=== PATIENT | female | born 1960 ===

== ENCOUNTER 2016-06-17 11:20 | Observation (INO) | payer OTHER ==
[2016-06-17 11:26] VITALS: BMI 27.6
--- NOTE | 2016-06-17 12:55 | ED PDOC ---
HPI:STROKE - Time Time: 12:15 - Historian Historian: Patient - Chief Complaint Chief Complaint: Numbness - Onset Date: 06/16/16 Time: 22:00 Onset: Hours - Timing Timing: Currently Symptomatic - Location Locate right:: Face, Upper extremity, Lower extremity - Severity of pain Maximum severity:: Mild Severity Current: Mild - Associated Symptoms Associated symptoms:: Chest pain - TPA Positive for Contraindication: Yes Reason tPA is not being Administered: out of window for TPA - Notes: Notes:: Patient is a 56 year old female who presents to ED for evaluation of chest pain with right sided numbness and pain that began at 11pm yesterday. Patient also reports dizziness. Numbness includes right face, right arm and right leg, denies fever or chills. PCP at [facility] NIHSS Stroke Scale - Date/Time Evaluation Performed Date Performed: 06/17/16 Time Performed: 12:30 When Was NIHSS Performed: Baseline - How Severe is the Stroke Level of Consciousness: 0=Alert LOC to Questions: 0=Both comments correct LOC to commands: 0=Obeys both correctly Best Gaze: 0=Normal Visual: 0=No visual loss Facial: 0=Normal Motor Arm - Left: 0=No drift Motor Arm - Right: 0=No drift Motor Leg - Left: 0=No drift Motor Leg - Right: 0=No drift Limb Ataxia: 0=Absent Sensory: 1=Mild to moderate loss Best Language: 0=No aphasia Dysarthia: 0=Normal articulation Extinction & Inattention (Neglect): 0=Normal, no object Score: 1 rTPA Inclusion/Exclusion - Refusal of Treatment Patient Refused Treatment: No - Inclusion Criteria for Altepase Patient is 18 years or Older: Yes The Clinical Diagnosis of Ischemic Stroke That is Causing a Potentially Disabling Neurological Deficit: Yes Time of Onset is Well Established to be Less Than 270 Minute Before Treatment Would Begin: No Risk/Benefit Discussed With Patient/Family Member Present: Yes Past Medical History Reviewed: Historical Data, Nursing Documentation, Vital Signs Vital Signs: Last Vital Signs Temp 98.2 F 06/17/16 11:26 Pulse 78 06/17/16 11:26 Resp 19 06/17/16 11:26 BP 142/69 06/17/16 11:26 Pulse Ox 98 06/17/16 11:26 - Medical History PMH: Diabetes (type II) Denies: Chronic Kidney Disease - Surgical History Surgical History: No Surg Hx - Family History Family History: States: No Known Family Hx - Living Arrangements Living Arrangements: With Family - Home Medications Home Medications: Ambulatory Orders Medication Instructions Recorded Glimepiride [Amaryl] 4 mg PO BID 06/17/16 metFORMIN [glucOPHAGE] 1,000 mg PO BID 06/17/16 - Allergies Allergies/Adverse Reactions: Allergies Allergy/AdvReac Type Severity Reaction Status Date / Time No Known Allergies Allergy Verified 04/19/15 15:28 Review of Systems ROS Statement: Except As Marked, All Systems Reviewed And Found Negative Constitutional: Negative for: Fever, Chills Eyes: Negative for: Vision Change Cardiovascular: Positive for: Chest Pain. Negative for: Palpitations, Light Headedness Respiratory: Negative for: Shortness of Breath Gastrointestinal: Negative for: Nausea, Vomiting, Abdominal Pain, Diarrhea Musculoskeletal: Positive for: Neck Pain (right), Arm Pain (right), Leg Pain ( right) Neurological: Positive for: Numbness, Dizziness. Negative for: Weakness, Change in Speech, Headache Physical Exam - Reviewed Nursing Documentation Reviewed: Yes Vital Signs Reviewed: Yes - Physical Exam Appears: Positive for: Non-toxic, No Acute Distress Head Exam: Positive for: ATRAUMATIC, NORMAL INSPECTION Skin: Positive for: Normal Color, Warm Eye Exam: Positive for: Normal appearance, EOMI, PERRL Neck: Positive for: Normal, Painless ROM Cardiovascular/Chest: Positive for: Regular Rate, Rhythm, Chest Non Tender. Negative for: Murmur Respiratory: Negative for: Wheezing Gastrointestinal/Abdominal: Positive for: Normal Exam. Negative for: Tenderness , Distended Back: Positive for: Normal Inspection Extremity: Positive for: Normal ROM. Negative for: Pedal Edema, Calf Tenderness Neurologic/Psych: Positive for: Alert, Oriented - Laboratory Results Result Diagrams: 06/17/16 13:25 06/17/16 13:25 - ECG O2 Sat by Pulse Oximetry: 98 (RA) Pulse Ox Interpretation: Normal Medical Decision Making Medical Decision Making: Time: 1230 Initial impression: CVA onset out of window. Chest pain r/o ACS Initial plan: -- Type and screen -- CT-head -- CMP -- Hemoglobin -- Lipid panel -- Troponin -- CBC -- PT/PTT -- CXR -- cut out worker Time: 1445 CT-head results reviewed PROCEDURE: CT HEAD WITHOUT CONTRAST. HISTORY: Right-sided numbness COMPARISON: None available. TECHNIQUE: Axial computed tomography images were obtained through the head/brain without intravenous contrast. Radiation dose: Total exam DLP = 805.38 mGy-cm. This CT exam was performed using one or more of the following dose reduction techniques: Automated exposure control, adjustment of the mA and/or kV according to patient size, and/or use of iterative reconstruction technique. FINDINGS: HEMORRHAGE: No intracranial hemorrhage. BRAIN: Esparza-white matter differentiation is preserved. There is no mass, mass effect or abnormal extra-axial fluid collection. VENTRICLES: The ventricles are normal in size, shape and configuration. CALVARIUM: The skull base and calvarium are normal PARANASAL SINUSES: Predominantly clear. MASTOID AIR CELLS: Bilateral mastoid air cells are underdeveloped. OTHER FINDINGS: None. IMPRESSION: No acute intracranial abnormality. Discussed with Dr Wilson who agrees that patient is not TPA candidate since is out of window for TPA and NIH SS is 1. Recommends admission for stroke work up. Scribe Attestation: Documented by Mleina Burden acting as a scribe for Niranjan Sebastian MD MD Scribe Attestation: All medical record entries made by the Scribe were at my direction and personally dictated by me. I have reviewed the chart and agree that the record accurately reflects my personal performance of the history, physical exam, medical decision making, and the department course for this patient. I have also personally directed, reviewed, and agree with the discharge instructions and disposition. Disposition - Clinical Impression Clinical Impression: Numbness on right side, CVA (cerebral vascular accident), Chest pain - Patient ED Disposition Is Patient to be Admitted: Yes Discussed With : Diomedes Hillman Doctor Will See Patient In The: ED Counseled Patient/Family Regarding: Studies Performed, Diagnosis - Disposition Disposition Time: 15:00 Condition: FAIR - Pt Status Changed To: Hospital Disposition Of: Inpatient - Admit Certification Admit to Inpatient:: After my assessment, the patient will require hospitalization for at least two midnights. This is because of the severity of symptoms shown, intensity of services needed, and/or the medical risk in this patient being treated as an outpatient. - POA Present On Arrival: Poor Glycemic Control Core Measure Indicators: Chest Pain
--- NOTE | 2016-06-17 13:09 | RAD ---
HISTORY: Chest pain COMPARISON: 01/14/2015 FINDINGS: LUNGS: The lungs are well inflated and clear. PLEURA: No significant pleural effusion identified, no pneumothorax apparent. CARDIOVASCULAR: Normal. OSSEOUS STRUCTURES: No significant abnormalities. VISUALIZED UPPER ABDOMEN: Normal. OTHER FINDINGS: None. IMPRESSION: No active pulmonary disease.
[2016-06-17 13:38] LABS: BASO % 0.6 % (0.0-2.0); EOS # 0.1 K/uL (0.0-0.7); HEMATOCRIT 43.6 % (34.0-47.0); LYMPH # 2.8 K/uL (1.0-4.3); LYMPH % 45.9 % (20.0-40.0); MEAN CELL VOLUME 89.8 fl (81.0-99.0); MEAN CORPUSCULAR HEMOGLOBIN 30.7 pg (27.0-31.0); MEAN CORPUSCULAR HGB CONC 34.1 g/dL (33.0-37.0); MEAN PLATELET VOLUME 11.1 fl (7.2-11.7); MONO # 0.4 K/uL (0.0-0.8); MONO % 6.3 % (0.0-10.0); NEUT # 2.7 K/uL (1.8-7.0); NEUT % 45.2 % (50.0-75.0); NRBC % 0.1 % (0.0-0.0)
--- NOTE | 2016-06-17 13:51 | CT ---
PROCEDURE: CT HEAD WITHOUT CONTRAST. HISTORY: Right-sided numbness COMPARISON: None available. TECHNIQUE: Axial computed tomography images were obtained through the head/brain without intravenous contrast. Radiation dose: Total exam DLP = 805.38 mGy-cm. This CT exam was performed using one or more of the following dose reduction techniques: Automated exposure control, adjustment of the mA and/or kV according to patient size, and/or use of iterative reconstruction technique. FINDINGS: HEMORRHAGE: No intracranial hemorrhage. BRAIN: Esparza-white matter differentiation is preserved. There is no mass, mass effect or abnormal extra-axial fluid collection. VENTRICLES: The ventricles are normal in size, shape and configuration. CALVARIUM: The skull base and calvarium are normal PARANASAL SINUSES: Predominantly clear. MASTOID AIR CELLS: Bilateral mastoid air cells are underdeveloped. OTHER FINDINGS: None. IMPRESSION: No acute intracranial abnormality.
[2016-06-17 13:52] LABS: CHLORIDE 101 mmol/L (98-107); POTASSIUM 4.4 MMOL/L (3.6-5.0); SODIUM 140 mmol/l (132-148)
[2016-06-17 13:54] LABS: ALB/GLOB RATIO 1.4 (1.0-2.1); AST/SGOT 38 U/L (14-36); BILIRUBIN,TOTAL 0.9 mg/dl (0.2-1.3); BLOOD UREA NITROGEN 10 mg/dl (7-17); CARBON DIOXIDE 26 mmol/L (22-30); CHOLESTEROL 155 mg/dL (0-199); GFR AFRICAN-AMERICAN > 60; GLUCOSE,RANDOM 315 mg/dL (65-105)
[2016-06-17 13:55] LABS: ALKALINE PHOSPHATASE 143 U/L (38-126); ALT/SGPT 59 U/L (9-52); CALCIUM 9.5 mg/dL (8.4-10.2)
--- NOTE | 2016-06-17 16:25 | CP.PCM.HP ---
History of Present Illness - History of Present Illness History of Present Illness: Hospitalist Admission H&P (Patient was seen and examined at 3 PM 06/18/16 ER Bed # 5 with the assistance of DEACON MoralesAircraft Part Assembler Karen [id number]) PMD: Clinic in [place] CODE STATUS: NO living will/advance directive. FULL CODE. Designates her as her health care proxy. CHIEF COMPLAINT: Numbness and Pain on the right side of her body 56 year old female who presents to [facility] ER with complaints of pain and numbness involving the right side of her body. While she was doing laundry late last night around 10:30 PM, she started to experience numbness involving the right face, right arm/hand. The numbness seemed start in the arm then the wrist then back upto the arm all the way up to the right side of her chest and right side of her face. She didn't think much of it and thought that it would go away therefore she went to bed. When she awoke this morning she was experiencing a throbbing pain in the right arm that then became a "tingling" that travelled to her right face. She then went to her class where she is learning bermudian, during which she started to experience numbness on the right side of her face and at one point she felt like she could not hold the pencil with her right hand. She went home and then with her took their granddaughter to the Police Crime Scene Technician's office for the evaluation of possible flu. While in the waiting room she started to experience dizziness and "intense pain" in the right arm, right leg, right side of the face. Because of this she told her to bring her here to the ER. Currently upon FULL ROS she states that the right arm feels like "it is heavy" but there is NO pain/numbness/tingling in the right side of face, right leg. Currently there is NO chest pain, NO palpitations, NO SOB/Cough/Wheezing, NO soreness in the throat/dysphagia/odynophagia, NO abdominal pain, NO n/v/d/c, NO black/bloody stools, NO burning/pain with urination, NO new changes in vision/ eye pain, NO new changes in hearing/ear pain, NO edema, NO rashes, NO headache. There are NO complaints of neck/back pain ever at the time of my exam or at the time of onset of symptoms. She denies lifting anything heavy while doing the laundry when the symptoms began. 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 , Housewife, NO alcohol, NO smoking, NO drugs Family Hx: Mom (passes away of Throat Cancer), Dad ( of CVA at 48 y/o ), 9 Children (Healthy Present on Admission - Present on Admission Any Indicators Present on Admission: Yes History of DVT/PE: No History of Uncontrolled Diabetes: No Urinary Catheter: No Decubitus Ulcer Present: No Review of Systems - Review of Systems Review of Systems: PLEASE SEE HPI ABOVE Past Patient History - Infectious Disease Hx of Infectious Diseases: None - Past Medical History & Family History Past Medical History?: Yes Pertinent Family History: PLEASE SEE HPI ABOVE - Past Social History Smoking Status: Never Smoked - CARDIAC Hx Cardiac Disorders: No - PULMONARY Hx Respiratory Disorders: No - NEUROLOGICAL Hx Neurological Disorder: No - HEENT Hx HEENT Problems: No - RENAL Hx Chronic Kidney Disease: No - ENDOCRINE/METABOLIC Hx Endocrine Disorders: Yes Hx Diabetes Mellitus Type 2: Yes - HEMATOLOGICAL/ONCOLOGICAL Hx Blood Disorders: No - INTEGUMENTARY Hx Dermatological Problems: No - MUSCULOSKELETAL/RHEUMATOLOGICAL Hx Musculoskeletal Disorders: No Hx Falls: No - GASTROINTESTINAL Hx Gastrointestinal Disorders: No - GENITOURINARY/GYNECOLOGICAL Hx Genitourinary Disorders: No - PSYCHIATRIC Hx Psychophysiologic Disorder: No Hx Substance Use: No - SURGICAL HISTORY Hx Surgeries: Yes Hx Tubal Ligation: Yes - ANESTHESIA Hx Anesthesia: No Hx Anesthesia Reactions: No Meds Allergies/Adverse Reactions: Allergies Allergy/AdvReac Type Severity Reaction Status Date / Time No Known Allergies Allergy Verified 04/19/15 15:28 Physical Exam - Constitutional Appears: Non-toxic, No Acute Distress - Head Exam Head Exam: ATRAUMATIC, NORMAL INSPECTION, NORMOCEPHALIC - Eye Exam Eye Exam: EOMI, Normal appearance, PERRL Pupil Exam: NORMAL ACCOMODATION, PERRL - ENT Exam ENT Exam: Mucous Membranes Moist, Normal Exam, Normal External Ear Exam, Normal Oropharynx - Neck Exam Neck exam: Positive for: Normal Inspection Additional comments: NO LYMPHADENOPATHY NO THYROMEGALY - Respiratory Exam Respiratory Exam: Clear to Auscultation Bilateral, NORMAL BREATHING PATTERN Additional comments: NO R/R/W - Cardiovascular Exam Cardiovascular Exam: REGULAR RHYTHM, +S1, +S2 Additional comments: NS1 AND NS2, NO M/R/G - GI/Abdominal Exam Additional comments: BS X 4, SOFT, CENTRAL OBESITY, NT, NO HSM, NO GUARDING/REBOUND TENDERNESS - Extremities Exam Extremities exam: Positive for: normal capillary refill, normal inspection, pedal pulses present Additional comments: PULSES ARE STRONG AND EQUAL IN THE BILATERAL UE AND LE NO CYANOSIS IN THE BILATERAL UE AND LE NO CLUBBING IN THE BILATERAL UE AND LE CAPILLARY REFILL IS EQUAL TO 2 SECONDS IN THE BILATERAL UE AND LE NO EDEMA IN THE BILATERAL UE AND LE - Neurological Exam Neurological exam: Alert, CN II-XII Intact, Normal Gait, Oriented x3, Reflexes Normal Additional comments: 5/5 STRENGTH WITH FLEXION AND EXTENSION IN THE BILATERAL UE AND LE AGAINST MY RESISTANCE 2/4 DTR IN THE BILATERAL UE AND LE NO FACIAL ASSYMETRY RHOMBERG AND BABINSKI ARE NORMAL SENSATION IS INTACT AT THE TIME OF MY EXAM HOWEVER SHE STATES THAT THE RIGHT ARM FEELS "HEAVY" - Psychiatric Exam Psychiatric exam: Normal Affect, Normal Mood - Skin Skin Exam: Normal Color, Warm Results - Vital Signs Recent Vital Signs: Last Vital Signs Temp 98.1 F 06/17/16 15:54 Pulse 75 06/17/16 15:54 Resp 20 06/17/16 15:54 BP 135/77 06/17/16 15:54 Pulse Ox 98 06/17/16 16:00 - Labs Result Diagrams: 06/17/16 13:25 06/17/16 13:25 Assessment & Plan (1) CVA (cerebral vascular accident) Assessment and Plan: This is possible CT Head did not show any acute pathology and no intracranial bleeding MRI Brain w/o contrast STAT Carotid U/S STAT 2D Echocardiogram in the morning 06/17/16 ASA 81 mg PO 1x/day Atorvastatin 10 mg PO 1x/day F/U RPR, Vitamin B12, Folate, Lupus Anticoagulant, Anticardiolipin Abs, TSH, T4 , HgBA1C F/U further recommendations by Neurologist Dr. Wilson who was notified by ER Physician Status: Acute (2) Chest pain Assessment and Plan: This is questionable on the Right Side as indicated in the HPI F/U Troponin and EKG at 7:30 PM tonight and 1:30 AM 06/18/16 F/U 2D Echocardiogram as above Status: Acute (3) Hx of type 2 diabetes mellitus Assessment and Plan: Metformin 1,000 mg PO 1x/day Amaryl 4 mg PO 2x/day RISS Accuchecks F/U HgBA1C Patient should be on a Statin and TODD I and therefore Atorvastatin 10 mg PO 1x/ day and Lisinopril 5 mg PO 1x/day added Status: Chronic (4) Prophylactic measure Assessment and Plan: Lovenox 40 mg SQ 1x/day Protonix 40 mg PO 1x/day Diabetic Diet Status: Acute
[2016-06-17] MEDS: Pantoprazole 40 mg EC Tab PO SCH (17:00)
--- NOTE | 2016-06-17 17:00 | US ---
PROCEDURE: Carotid vertebral duplex sonography HISTORY: Possible CVA COMPARISON: None TECHNIQUE: Grayscale, color Doppler and spectral Doppler assessment of the carotid system bilaterally. This includes common carotid, internal carotid arteries Vertebral artery assessment with respect to direction of flow (antegrade or retrograde) FINDINGS: RIGHT carotid system: Assessment of plaque: Heterogeneous plaque formation. Peak systolic ICA velocity: 68 cm/sec End-diastolic velocity: 27 cm/sec ICA/CCA ratio: 1.8 Vertebral artery flow: Antegrade LEFT carotid system: Assessment of plaque: Heterogeneous plaque formation. Peak systolic ICA velocity: 81 cm/sec End-diastolic velocity: 28 cm/sec ICA/CCA ratio: 1.5 Vertebral artery flow: Antegrade IMPRESSION: Right ICA degree of stenosis: Less than 50% Left ICA degree of stenosis: Less than 50% Reference Internal Carotid Artery (ICA) Peak Systolic Velocity (PSV) for above: 1. Less than 50% stenosis less than 125 cm/s peak systolic velocity 2. 50-69% stenosis 125-230cm/s peak systolic velocity 3. Greater than 70% but less than near occlusion greater than 230 cm/s peak systolic velocity
[2016-06-17] MEDS: GlipiZIDE 10 mg SR Tab PO SCH (17:30)
[2016-06-17] MEDS: Insulin Regular 100 units/ml SC SCH ×2 (18:00→23:49)
--- NOTE | 2016-06-17 18:03 | CARD ---
APPROVED REPORT EKG Measurement Heart [id number] CO [id number] <Conclusion> Normal sinus rhythm Possible septal infarct, age undetermined Abnormal ECG
[2016-06-17] MEDS: Enoxaparin 40 mg Syringe SC SCH (18:21)
[2016-06-18] MEDS: Insulin Regular 100 units/ml SC SCH ×4 (06:29→21:50)
[2016-06-18 06:45] LABS: BASO % 0.5 % (0.0-2.0); EOS # 0.1 K/uL (0.0-0.7); EOS % 2.1 % (0.0-4.0); HEMATOCRIT 43.8 % (34.0-47.0); LYMPH % 43.2 % (20.0-40.0); MEAN CELL VOLUME 91.5 fl (81.0-99.0); MEAN CORPUSCULAR HEMOGLOBIN 31.3 pg (27.0-31.0); MEAN CORPUSCULAR HGB CONC 34.2 g/dL (33.0-37.0); MEAN PLATELET VOLUME 10.8 fl (7.2-11.7); MONO # 0.5 K/uL (0.0-0.8); NEUT # 3.3 K/uL (1.8-7.0); NEUT % 47.2 % (50.0-75.0); NRBC % 0.2 % (0.0-0.0); RED CELL DISTRIBUTION WIDTH 12.6 % (11.5-14.5)
[2016-06-18 07:29] LABS: ALB/GLOB RATIO 1.2 (1.0-2.1); ALKALINE PHOSPHATASE 112 U/L (38-126); ALT/SGPT 56 U/L (9-52); AST/SGOT 53 U/L (14-36); BILIRUBIN,TOTAL 0.7 mg/dl (0.2-1.3); BLOOD UREA NITROGEN 12 mg/dl (7-17); CALCIUM 9.1 mg/dL (8.4-10.2); CARBON DIOXIDE 25 mmol/L (22-30); CHLORIDE 102 mmol/L (98-107); GFR AFRICAN-AMERICAN > 60; GLUCOSE,RANDOM 275 mg/dL (65-105); POTASSIUM 4.2 MMOL/L (3.6-5.0); SODIUM 140 mmol/l (132-148); TOTAL PROTEIN 6.5 G/DL (6.3-8.2)
[2016-06-18 07:55] LABS: T4 8.07 ug/dl (5.5-11.0)
[2016-06-18 08:09] LABS: THYROID STIMULATING HORMONE 0.78 mIU/ML (0.46-4.68)
--- NOTE | 2016-06-18 10:12 | MRI ---
PROCEDURE: MRI BRAIN WITHOUT CONTRAST HISTORY: Possible CVA COMPARISON: Noncontrast head CT from 06/17/2016 TECHNIQUE: Multiplanar, multisequence MR images of the brain were obtained without intravenous contrast enhancement. FINDINGS: HEMORRHAGE: None DWI: No evidence of an acute or early subacute infarction. BRAIN PARENCHYMA: Esparza-white matter differentiation is preserved. There is no mass, mass effect or abnormal extra-axial fluid collection. The midline sagittal structures are normal. VENTRICLES: The ventricles are normal in size, shape and configuration. CRANIUM: There is normal bone marrow signal pattern. ORBITS: Grossly unremarkable. PARANASAL SINUSES/MASTOIDS: There is fluid in the right maxillary sinus. There is mild mucosal thickening in the remaining paranasal sinuses. Bilateral mastoid air cells are underdeveloped. VASCULAR SYSTEM: There are normal signal voids in the larger intracranial arteries. OTHER FINDINGS: None. IMPRESSION: No acute intracranial abnormality. Essentially normal noncontrast MRI of the brain. Fluid level in the right maxillary sinus may represent acute sinusitis in the appropriate clinical setting.
[2016-06-18] MEDS: GlipiZIDE 10 mg SR Tab PO SCH ×2 (10:25→16:57)
[2016-06-18] MEDS: Pantoprazole 40 mg EC Tab PO SCH (10:26)
[2016-06-18] MEDS: Enoxaparin 40 mg Syringe SC SCH (10:26)
--- NOTE | 2016-06-18 11:23 | CP.PCM.PN ---
<Marquez Chris - Last Filed: 06/18/16 13:18> Subjective - Date & Time of Evaluation Date of Evaluation: 06/18/16 Time of Evaluation: 10:50 - Subjective Subjective: 56 y/o F with PMHx of DM, admitted due to episode of R/Side paresthesias and pain is seen at bedside in not acute distress. Patient states r/side UE pain resolved and R/side paresthesias has markedly improved. C/O frontal headaches, 5/10, constant with no associated symptoms. She denies vomiting, fever, nausea, weakness, difficulty walking or difficulty speaking. Patient admits not visiting her PMD in the last 6 months and hasn't been compliant with diet recently. She is tolerating PO well. She has daily BM and has no difficulty voiding. She also denies denies nasal congestion, or fever Objective - Vital Signs/Intake and Output Vital Signs (last 24 hours): Temp Pulse Resp BP Pulse Ox 98.5 F 68 18 110/65 99 06/18/16 08:00 06/18/16 10:26 06/18/16 08:00 06/18/16 10:26 06/18/16 08:00 - Medications Medications: Current Medications Aspirin (Ecotrin) 81 mg PO DAILY [facility] Last Admin: 06/18/16 10:26 Dose: 81 mg Atorvastatin Calcium (Lipitor) 10 mg PO DAILY [facility] Last Admin: 06/18/16 10:26 Dose: 10 mg Enoxaparin Sodium (Lovenox) 40 mg SC DAILY [facility] PRN Reason: Protocol Last Admin: 06/18/16 10:26 Dose: 40 mg Glipizide (Glucotrol Xl) 10 mg PO BID [facility] Last Admin: 06/18/16 10:25 Dose: 10 mg Insulin Human Regular (Humulin R) 0 units SC ACHS [facility] Last Admin: 06/18/16 06:29 Dose: 6 units Lisinopril (Zestril) 5 mg PO DAILY [facility] Last Admin: 06/18/16 10:26 Dose: 5 mg Metformin HCl (Glucophage) 1,000 mg PO BID [facility] Last Admin: 06/18/16 10:25 Dose: 1,000 mg Pantoprazole Sodium (Protonix Ec Tab) 40 mg PO DAILY [facility] Last Admin: 06/18/16 10:26 Dose: 40 mg - Labs Labs: 06/18/16 05:20 06/18/16 05:20 PT 10.3 SECONDS (9.6-11.2) 06/17/16 13:25 INR 0.99 (0.92-1.08) 06/17/16 13:25 APTT 24.0 SECONDS (23.3-32.5) 06/17/16 13:25 - Constitutional Appears: Non-toxic, No Acute Distress - Head Exam Head Exam: ATRAUMATIC Additional comments: Patient denies maxillary tenderness - Eye Exam Eye Exam: Normal appearance, PERRL. absent: Nystagmus, Periorbital tenderness - Neck Exam Neck Exam: Full ROM, Normal Inspection - Respiratory Exam Respiratory Exam: Clear to Ausculation Bilateral, NORMAL BREATHING PATTERN. absent: Rales, Wheezes - Cardiovascular Exam Cardiovascular Exam: REGULAR RHYTHM, +S1, +S2 - GI/Abdominal Exam GI & Abdominal Exam: Soft, Normal Bowel Sounds. absent: Distended, Guarding, Tenderness, Rebound - Back Exam Back Exam: NORMAL INSPECTION. absent: CVA tenderness (L), CVA tenderness (R) - Neurological Exam Neurological Exam: Alert, Awake, Normal Gait, Oriented x3, Reflexes Normal. absent: Motor Sensory Deficit Neuro motor strength exam: Left Upper Extremity: 5, Right Upper Extremity: 5, Left Lower Extremity: 5, Right Lower Extremity: 5 - Psychiatric Exam Psychiatric exam: Normal Affect, Normal Mood. absent: Depressed - Skin Skin Exam: Intact, Normal Color. absent: Rash Assessment and Plan - Assessment and Plan (Free Text) Assessment: 56 y/o F with Hx of DMtype 2 admitted for R/side paresthesias and pain. (1) R/Side Paresthesias(acute) CVA ruled out Improved Uncontrolled DM, HgbA1c 13 Vit B12 normal low level: 260 F/U Neuro recs F/U Endocrinology recs MRI: Possible R/side maxillary sinusitis: Patient denies nasal congestion, fever , maxillary tenderness (2) CVA (cerebral vascular accident) ruled out CT Head did not show any acute pathology and no intracranial bleeding MRI Brain w/o contrast ruled out CVA Carotid U/S less than 50% obstruction B/L Echocardiogram: EF 65%. Trace mitral and tricuspid regurgitation ASA 81 mg PO 1x/day Atorvastatin 10 mg PO 1x/day F/U RPR, Folate, Lupus Anticoagulant, Anticardiolipin Abs Vitamin B12 260 , TSH and T4 WNL F/U further recommendations by Neurologist Dr. Wilson (3) Chest pain (resolved) Troponin x3 negative EKG: Possible septal infarct of undetermined age F/U 2D Echocardiogram (4) type 2 diabetes mellitus Metformin 1,000 mg PO BID Glipizide 10mg BID RISS Accuchecks 243-355 HgBA1C 13 Continue Atorvastatin 10 mg PO 1x/day and Lisinopril 5 mg PO 1x/day (5) Prophylactic measure Lovenox 40 mg SQ 1x/day Protonix 40 mg PO 1x/day Diabetic Diet <Diomedes Hillman - Last Filed: 06/18/16 17:53> Objective - Vital Signs/Intake and Output Vital Signs (last 24 hours): Temp Pulse Resp BP Pulse Ox 98.2 F 78 18 108/70 95 06/18/16 16:00 06/18/16 16:00 06/18/16 16:00 06/18/16 16:00 06/18/16 16:00 - Medications Medications: Current Medications Aspirin (Ecotrin) 81 mg PO DAILY [facility] Last Admin: 06/18/16 10:26 Dose: 81 mg Atorvastatin Calcium (Lipitor) 10 mg PO DAILY [facility] Last Admin: 06/18/16 10:26 Dose: 10 mg Enoxaparin Sodium (Lovenox) 40 mg SC DAILY [facility] PRN Reason: Protocol Last Admin: 06/18/16 10:26 Dose: 40 mg Glipizide (Glucotrol Xl) 10 mg PO BID [facility] Last Admin: 06/18/16 16:57 Dose: 10 mg Insulin Human NPH (Humulin N) 12 units SC [facility] Insulin Human Regular (Humulin R) 0 units SC [facility] PRN Reason: Protocol Last Admin: 06/18/16 16:58 Dose: Not Given Lisinopril (Zestril) 5 mg PO DAILY [facility] Last Admin: 06/18/16 10:26 Dose: 5 mg Metformin HCl (Glucophage) 1,000 mg PO BID [facility] Last Admin: 06/18/16 16:57 Dose: 1,000 mg Pantoprazole Sodium (Protonix Ec Tab) 40 mg PO DAILY [facility] Last Admin: 06/18/16 10:26 Dose: 40 mg - Labs Labs: 06/18/16 05:20 06/18/16 05:20 PT 10.3 SECONDS (9.6-11.2) 06/17/16 13:25 INR 0.99 (0.92-1.08) 06/17/16 13:25 APTT 24.0 SECONDS (23.3-32.5) 06/17/16 13:25 Assessment and Plan (1) CVA (cerebral vascular accident) Status: Acute (2) Chest pain Status: Acute (3) Hx of type 2 diabetes mellitus Status: Chronic (4) Prophylactic measure Status: Acute Attending/Attestation - Attestation I have personally seen and examined this patient.: Yes I have fully participated in the care of the patient.: Yes I have reviewed all pertinent clinical information, including history, physical exam and plan: Yes Notes (Text): 06/18/16 17:46 Hospitalist Addendum to Knitting Inspector Note Patient was seen by me at 1:50 PM 06/18/16 in [facility]. Exam, Assessment and Plan were thoroughly gone over with the resident Her presenting complaints have resolved (NO longer experiencing numbness on the right side of the body and is feeling minor pain in the right lower arm). 2D Echocardiogram showed EF estimated at 65% with trace mitral and tricuspid regurgitation. Carotid U/S showed < 50% stenosis bilaterally MRI Brain was negative for ischemia. It did show some fluid in the right maxillary sinus (however patient has no complaints of congestion and this can be followed up as an outpatient For her uncontrolled DM 2, I spoke with Homogenizer Operator Dr. Bahena (whose help is greatly appreciated) and she explained that due to the very high HgBA1C patient will need to have insulin on board. For now, she has started patient on Humulin NPH 12 units SQ QHS and has recommended to continue the RISS, Metformin, and Glipizide. Please Dr. Bahena's full consultation report for what the patient will require upon her discharge. Disposition: Neurology clearance by Dr. Fleming is required prior to discharging patient. Diomedes Hillman D.O.
--- NOTE | 2016-06-18 11:41 | CARD ---
APPROVED REPORT EXAM: Two-dimensional and M-mode echocardiogram with Doppler and color Doppler. Other Information Quality : GoodRhythm : NSR INDICATION CVA/TIA Chest Pain 2D DIMENSIONS IVSd0.69 (0.7-1.1cm)LVDd4.60 (3.9-5.9cm) LVOT Diameter1.68 (1.8-2.4cm)PWd0.84 (0.7-1.1cm) IVSs1.04 (0.8-1.2cm)LVDs2.66 (2.5-4.0cm) FS (%) 42.3 %PWs1.08 (0.8-1.2cm) M-Mode DIMENSIONS Left Atrium (MM)4.06 (2.5-4.0cm)IVSd0.97 (0.7-1.1cm) Aortic Root3.24 (2.2-3.7cm)LVDd5.35 (4.0-5.6cm) Aortic Cusp Exc.1.82 (1.5-2.0cm)PWd0.94 (0.7-1.1cm) IVSs1.24 cmFS (%) 36 % LVDs3.41 (2.0-3.8cm)PWs1.24 cm Mitral Valve MV E Jpnrxukx81.1cm/sMV DECEL [id number] A Qyaclkyq85.0cm/s MV UCQ43zhV/A ratio1.2MVA (PHT)3.49cm2 TDI Lateral E' Peak V10.27cm/sMedial E' Peak V7.58cm/sE/Lateral E'6.9 E/Medial E'9.4 Pulmonary Valve PV Peak Exapztyk87.8cm/s Tricuspid Valve TR Peak Zfcoxehc831cu/sRAP ATZBAZCJ21hzZhTQ Peak Gr.18mmHg KIKR73fqCx LEFT VENTRICLE The left ventricle is normal size. There is normal left ventricular wall thickness. The left ventricular function is normal. The left ventricular ejection fraction is - 65%. There is normal LV segmental wall motion. The left ventricular diastolic function is normal. No left ventricle thrombus noted on this study. There is no ventricular septal defect visualized. There is no left ventricular aneurysm. There is no mass noted in the left ventricle. RIGHT VENTRICLE The right ventricle is normal size. There is normal right ventricular wall thickness. The right ventricular systolic function is normal. ATRIA The left atrium is mildly dilated. There is no thrombus suspected in the left atrium. The right atrium size is normal. The interatrial septum is intact with no evidence for an atrial septal defect. AORTIC VALVE The aortic valve is normal in structure and function. No aortic regurgitation is present. There is no aortic valvular stenosis. MITRAL VALVE The mitral valve is normal in structure and function. There is no evidence of mitral valve prolapse. There is no mitral valve stenosis. Mitral regurgitation is trace. TRICUSPID VALVE The tricuspid valve is normal in structure and function. There is trace tricuspid regurgitation. Right ventricular systolic pressure is estimated at 27 mmHg. There is no tricuspid valve prolapse or vegetation. There is no tricuspid valve stenosis. PULMONIC VALVE The pulmonary valve is normal in structure and function. There is trace pulmonic valvular regurgitation. GREAT VESSELS The aortic root is normal in size. The IVC collapses <50% with inspiration. PERICARDIAL EFFUSION The pericardium appears normal. There is no pleural effusion. <Conclusion> The left ventricle is normal in size and wall thickness. The left ventricular function is normal. The left ventricular ejection fraction is - 65%. The left atrium is mildly dilated. The mitral, aortic and tricuspid valves are normal. There is trace mitral regurgitation and trace tricuspid regurgitation.
[2016-06-18 12:57] LABS: CARDIOLIPIN AB (IGA) <11 APL (<=11)
--- NOTE | 2016-06-18 17:12 | CON ---
DATE: 06/18/2016 LOCATION: Room 406. HISTORY OF PRESENT ILLNESS: This is a 56-year-old female with known history of type 2 diabetes on or al hypoglycemic therapy, who presents here with sudden onset of numbness in the right side and was ev aluated for possible acute CVA and is now being referred for diabetic evaluation because of persisten t hyperglycemic accelerations as noted thereof. PAST MEDICAL HISTORY: As mentioned above, history of type 2 diabetes, currently on metformin given a s 1000 b.i.d. and Amaryl 4 mg b.i.d., history of hypertension and dyslipidemia on no medications at t his time. REVIEW OF SYSTEMS: As mentioned above, admits to generalized body weakness with episodic dizziness a nd lightheadedness, worse on the day of admission with localized numbness and tingling and painful pa resthesias in the right side of her body. Also admits to easy fatigability and tiredness. No recent chest pains or palpitations or PNDs. Her oral intake has been variable, but otherwise satisfactory with occasional nausea and dyspepsia. Also admits to persistent nocturia and polyuria. PHYSICAL EXAMINATION: GENERAL: This is an average built female in no apparent distress. VITAL SIGNS: Blood pressure of 150/94, pulse of 70 beats per minute and regular, temperature 98, res pirations 20. Height is 5 feet 3, weight is 156 pounds. HEENT: Head normocephalic. Eyes anicteric with pink conjunctivae. Fundoscopy not possible at this time. Ears, nose and throat otherwise normal. NECK: Supple. Thyroid gland is normal size. No carotid bruits or cervical adenopathy. CARDIOPULMONARY: Some adynamic precordium. S1, S2 is rapid and regular. LUNGS: Clear to auscultation. ABDOMEN: Flat, soft with positive bowel sounds. EXTREMITIES: No peripheral edema. Pulses are +2 bilaterally. LABORATORY DATA: Her chemistries showed a BUN of 12, sodium 140, potassium 4.2, chloride 102, CO2 25 , glucose 275 and creatinine 0.5. Her glucose levels have ranged from 179-355 and 260 mg/dL. Her he moglobin A1c has been reported as 13.0%. ASSESSMENT: This is a 56-year-old female with uncontrolled and decompensated type 2 insulin-requirin g diabetes with marked hyperglycemic accelerations and quite an elevated A1c value, indicative of dotty y poor outpatient metabolic control despite the current intake of oral hypoglycemic therapy as kelly johns. This may be clearly an indication of secondary pancreatic failure with eventual insulin require ments as expected. PLAN OF MANAGEMENT: We will modify the current insulin regimen and lower the coverage scale to a low dose algorithm with regular insulin to obviate hypoglycemia and detailed orders have been given. We will add basal insulin with Humulin NPH given as 12 units subQ at bedtime daily to start tonight. T he biggest concern, however, is the fact that she clearly has postprandial hyperglycemia and would ne ed a fixed dose of insulin given at mealtimes, but because of her financial constraints and lack of [employer] insurance, she would not be able to afford the very expensive insulin analogs like NovoLog or Humalog insulins. We do not carry the cheaper Humulin 70/30, but only the Humalog 75/25 which is aga in an insulin analog which is quite expensive. So we will hold off on the aforementioned and add bas al insulin as ordered and observe her overnight response thereof. We will follow and advise jesus alberto villareal. Pauly Bahean MD cc: [id number] TT: 06/18/2016 17:11:13 Confirmation # [id number] Dictation # [id number] viet
--- NOTE | 2016-06-18 20:17 | CP.PCM.CON ---
History of Present Illness - History of Present Illness History of Present Illness: C.C.: Numbness and Pain on the right side of her body 56 year old female who presents to [facility] ER with complaints of pain and numbness involving the right side of her body. While she was doing laundry late last night around 10:30 PM, she started to experience numbness involving the right face, right arm/hand. The numbness seemed start in the arm then the wrist then back upto the arm all the way up to the right side of her chest and right side of her face. She didn't think much of it and thought that it would go away therefore she went to bed. When she awoke this morning she was experiencing a throbbing pain in the right arm that then became a "tingling" that travelled to her right face. She then went to her class where she is learning Slovak, during which she started to experience numbness on the right side of her face and at one point she felt like she could not hold the pencil with her right hand. She went home and then with her took their granddaughter to the Child Development Director's office for the evaluation of possible flu. While in the waiting room she started to experience dizziness and "intense pain" in the right arm, right leg, right side of the face. Because of this she told her to bring her here to the ER. Currently upon FULL ROS she states that the right arm feels like "it is heavy" but there is NO pain/numbness/tingling in the right side of face, right leg. Currently there is NO chest pain, NO palpitations, NO SOB/Cough/Wheezing, NO soreness in the throat/dysphagia/odynophagia, NO abdominal pain, NO n/v/d/c, NO black/bloody stools, NO burning/pain with urination, NO new changes in vision/ eye pain, NO new changes in hearing/ear pain, NO edema, NO rashes, NO headache. There are NO complaints of neck/back pain ever at the time of my exam or at the time of onset of symptoms. She denies lifting anything heavy while doing the laundry when the symptoms began. 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 , Housewife, NO alcohol, NO smoking, NO drugs Family Hx: Mom (passes away of Throat Cancer), Dad ( of CVA at 48 y/o ), 9 Children (Healthy Past Patient History - Infectious Disease Hx of Infectious Diseases: None - Past Medical History & Family History Past Medical History?: Yes - Past Social History Smoking Status: Never Smoked - CARDIAC Hx Cardiac Disorders: No - PULMONARY Hx Respiratory Disorders: No - NEUROLOGICAL Hx Neurological Disorder: No - HEENT Hx HEENT Problems: No - RENAL Hx Chronic Kidney Disease: No - ENDOCRINE/METABOLIC Hx Endocrine Disorders: Yes Hx Diabetes Mellitus Type 2: Yes - HEMATOLOGICAL/ONCOLOGICAL Hx Blood Disorders: No - INTEGUMENTARY Hx Dermatological Problems: No - MUSCULOSKELETAL/RHEUMATOLOGICAL Hx Musculoskeletal Disorders: No Hx Falls: No - GASTROINTESTINAL Hx Gastrointestinal Disorders: No - GENITOURINARY/GYNECOLOGICAL Hx Genitourinary Disorders: No - PSYCHIATRIC Hx Psychophysiologic Disorder: No Hx Substance Use: No - SURGICAL HISTORY Hx Surgeries: Yes Hx Tubal Ligation: Yes - ANESTHESIA Hx Anesthesia: No Hx Anesthesia Reactions: No Meds Allergies/Adverse Reactions: Allergies Allergy/AdvReac Type Severity Reaction Status Date / Time No Known Allergies Allergy Verified 04/19/15 15:28 - Medications Medications: Current Medications Aspirin (Ecotrin) 81 mg PO DAILY [facility] Last Admin: 06/18/16 10:26 Dose: 81 mg Atorvastatin Calcium (Lipitor) 10 mg PO DAILY [facility] Last Admin: 06/18/16 10:26 Dose: 10 mg Enoxaparin Sodium (Lovenox) 40 mg SC DAILY [facility] PRN Reason: Protocol Last Admin: 06/18/16 10:26 Dose: 40 mg Glipizide (Glucotrol Xl) 10 mg PO BID [facility] Last Admin: 06/18/16 16:57 Dose: 10 mg Insulin Human NPH (Humulin N) 12 units SC HS [facility] Insulin Human Regular (Humulin R) 0 units SC [facility] PRN Reason: Protocol Last Admin: 06/18/16 16:58 Dose: Not Given Lisinopril (Zestril) 5 mg PO DAILY [facility] Last Admin: 06/18/16 10:26 Dose: 5 mg Metformin HCl (Glucophage) 1,000 mg PO BID [facility] Last Admin: 06/18/16 16:57 Dose: 1,000 mg Pantoprazole Sodium (Protonix Ec Tab) 40 mg PO DAILY [facility] Last Admin: 06/18/16 10:26 Dose: 40 mg Physical Exam - Neurological Exam Additional comments: Mental status: Awake, alert, oriented X 3 Normal Memory X 3 Strictly Latvian speaking, Normal cognition. Cranial Nerves II to XII: No Deficits Motor: mormal findings in tone, power, muscle bulk DTR 0/4 Toes are down going by plantar stimulation. Sensory: Deficit peripherally Glove and Stoke, Right Side sensory deficit in Right UE. Cerebellar: Normal FNT Stature and Gait: not tested Results - Vital Signs Recent Vital Signs: Last Vital Signs Temp 98.2 F 06/18/16 19:24 Pulse 75 06/18/16 19:24 Resp 18 06/18/16 19:24 BP 104/58 L 06/18/16 19:24 Pulse Ox 98 06/18/16 19:24 - Labs Result Diagrams: 06/18/16 05:20 06/18/16 05:20 Labs: Laboratory Results - last 24 hr 06/17/16 06/17/16 06/17/16 16:20 19:53 22:44 WBC RBC Hgb Hct MCV MCH MCHC RDW Plt Count MPV Neut % (Auto) Lymph % (Auto) [place] % (Auto) Eos % (Auto) Baso % (Auto) Neut # Lymph # [place] # Eos # Baso # Sodium Potassium Chloride Carbon Dioxide Anion Gap BUN Creatinine Est GFR ( Amer) Est GFR (Non-Af Amer) POC Glucose (mg/dL) 243 H Random Glucose Calcium Total Bilirubin AST ALT Alkaline Phosphatase Troponin I < 0.0120 Total Protein Albumin Globulin Albumin/Globulin Ratio Vitamin B12 Thyroxine (T4) TSH 3rd Generation Anti-Cardiolipin IgG Ab <14 Anti-Cardiolipin IgA Ab <11 RPR 06/18/16 06/18/16 06/18/16 05:03 05:20 11:19 WBC 7.0 RBC 4.79 Hgb 15.0 Hct 43.8 MCV 91.5 MCH 31.3 H MCHC 34.2 RDW 12.6 Plt Count 127 L MPV 10.8 Neut % (Auto) 47.2 L Lymph % (Auto) 43.2 H [place] % (Auto) 7.0 Eos % (Auto) 2.1 Baso % (Auto) 0.5 Neut # 3.3 Lymph # 3.0 [place] # 0.5 Eos # 0.1 Baso # 0.0 Sodium 140 Potassium 4.2 Chloride 102 Carbon Dioxide 25 Anion Gap 18 BUN 12 Creatinine 0.5 L Est GFR ( Amer) > 60 Est GFR (Non-Af Amer) > 60 POC Glucose (mg/dL) 260 H 355 H Random Glucose 275 H Calcium 9.1 Total Bilirubin 0.7 AST 53 H D ALT 56 H Alkaline Phosphatase 112 Troponin I < 0.0120 Total Protein 6.5 Albumin 3.5 Globulin 3.0 Albumin/Globulin Ratio 1.2 Vitamin B12 260 Thyroxine (T4) 8.07 TSH 3rd Generation 0.78 Anti-Cardiolipin IgG Ab Anti-Cardiolipin IgA Ab RPR Nonreactive 06/18/16 15:50 WBC RBC Hgb Hct MCV MCH MCHC RDW Plt Count MPV Neut % (Auto) Lymph % (Auto) [place] % (Auto) Eos % (Auto) Baso % (Auto) Neut # Lymph # [place] # Eos # Baso # Sodium Potassium Chloride Carbon Dioxide Anion Gap BUN Creatinine Est GFR ( Amer) Est GFR (Non-Af Amer) POC Glucose (mg/dL) 179 H Random Glucose Calcium Total Bilirubin AST ALT Alkaline Phosphatase Troponin I Total Protein Albumin Globulin Albumin/Globulin Ratio Vitamin B12 Thyroxine (T4) TSH 3rd Generation Anti-Cardiolipin IgG Ab Anti-Cardiolipin IgA Ab RPR Assessment & Plan (1) CVA (cerebral vascular accident) Status: Acute (2) Chest pain Status: Acute (3) Numbness on right side Status: Acute (4) Hx of type 2 diabetes mellitus Status: Chronic (5) Peripheral neuropathic pain Status: Acute (6) Radiculopathy Assessment and Plan: Affecting Upper and Lower Extremities, due to Diabetes Mellitus or due to A disc lesion or excessive muscular exercise with the Right side involved. Give Amitriptilline ( Elavil) 25 mg QHS. Must r/o Heart Block by 2 EKG per Year. It treats all kind of pain due to Headache, Neuropathy, Radiculopathy. Status: Acute
[2016-06-18] MEDS ORDERED: Insulin NPH Human 100 Units/ml Inj SC SCH (22:00)
[2016-06-19 05:04] VITALS: RESP 18
[2016-06-19 08:31] VITALS: BP 110/70; PULSE 70; TEMP 98.2; O2SAT 97
[2016-06-19] MEDS: GlipiZIDE 10 mg SR Tab PO SCH (08:46)
[2016-06-19] MEDS: Pantoprazole 40 mg EC Tab PO SCH (08:48)
[2016-06-19] MEDS: Enoxaparin 40 mg Syringe SC SCH (08:48)
[2016-06-19] MEDS: Insulin Regular 100 units/ml SC SCH (08:49)
--- NOTE | 2016-06-19 09:09 | CP.PCM.DIS ---
Provider - Provider Date of Admission: 06/17/16 14:58 Attending physician: Diomedes Hillman MD Time Spent in preparation of Discharge (in minutes): 35 Diagnosis - Discharge Diagnosis (1) Radiculopathy Status: Acute Comment: Improved. Evaluated by Neuro. CVA ruled out. Most likely due to DM (2) Hx of type 2 diabetes mellitus Status: Chronic Comment: Uncontrolled. Evaluated by Endocrinology. Will cont Insulin NPH as outpatient Hospital Course - Lab Results Lab Results: Most Recent Lab Values WBC 7.0 K/uL (4.8-10.8) 06/18/16 05:20 RBC 4.79 Mil/uL (3.80-5.20) 06/18/16 05:20 Hgb 15.0 g/dL (12.0-16.0) 06/18/16 05:20 Hct 43.8 % (34.0-47.0) 06/18/16 05:20 MCV 91.5 fl (81.0-99.0) 06/18/16 05:20 MCH 31.3 pg (27.0-31.0) H 06/18/16 05:20 MCHC 34.2 g/dL (33.0-37.0) 06/18/16 05:20 RDW 12.6 % (11.5-14.5) 06/18/16 05:20 Plt Count 127 K/uL (130-400) L 06/18/16 05:20 MPV 10.8 fl (7.2-11.7) 06/18/16 05:20 Neut % (Auto) 47.2 % (50.0-75.0) L 06/18/16 05:20 Lymph % (Auto) 43.2 % (20.0-40.0) H 06/18/16 05:20 Dundy % (Auto) 7.0 % (0.0-10.0) 06/18/16 05:20 Eos % (Auto) 2.1 % (0.0-4.0) 06/18/16 05:20 Baso % (Auto) 0.5 % (0.0-2.0) 06/18/16 05:20 Neut # 3.3 K/uL (1.8-7.0) 06/18/16 05:20 Lymph # 3.0 K/uL (1.0-4.3) 06/18/16 05:20 Dundy # 0.5 K/uL (0.0-0.8) 06/18/16 05:20 Eos # 0.1 K/uL (0.0-0.7) 06/18/16 05:20 Baso # 0.0 K/uL (0.0-0.2) 06/18/16 05:20 PT 10.3 SECONDS (9.6-11.2) 06/17/16 13:25 INR 0.99 (0.92-1.08) 06/17/16 13:25 APTT 24.0 SECONDS (23.3-32.5) 06/17/16 13:25 Sodium 140 mmol/l (132-148) 06/18/16 05:20 Potassium 4.2 MMOL/L (3.6-5.0) 06/18/16 05:20 Chloride 102 mmol/L (98-107) 06/18/16 05:20 Carbon Dioxide 25 mmol/L (22-30) 06/18/16 05:20 Anion Gap 18 (10-20) 06/18/16 05:20 BUN 12 mg/dl (7-17) 06/18/16 05:20 Creatinine 0.5 mg/dL (0.7-1.2) L 06/18/16 05:20 Est GFR ( Amer) > 60 06/18/16 05:20 Est GFR (Non-Af Amer) > 60 06/18/16 05:20 POC Glucose (mg/dL) 195 mg/dL (65-110) H 06/19/16 05:41 Random Glucose 275 mg/dL (65-105) H 06/18/16 05:20 Hemoglobin A1c 13.0 % (4.2-6.5) H 06/17/16 12:38 Calcium 9.1 mg/dL (8.4-10.2) 06/18/16 05:20 Total Bilirubin 0.7 mg/dl (0.2-1.3) 06/18/16 05:20 AST 53 U/L (14-36) H D 06/18/16 05:20 ALT 56 U/L (9-52) H 06/18/16 05:20 Alkaline Phosphatase 112 U/L (38-126) 06/18/16 05:20 Troponin I < 0.0120 ng/mL (0.00-0.120) 06/18/16 05:20 Total Protein 6.5 G/DL (6.3-8.2) 06/18/16 05:20 Albumin 3.5 g/dL (3.5-5.0) 06/18/16 05:20 Globulin 3.0 gm/dL (2.2-3.9) 06/18/16 05:20 Albumin/Globulin Ratio 1.2 (1.0-2.1) 06/18/16 05:20 Triglycerides 278 mg/DL (0-149) H 06/17/16 13:25 Cholesterol 155 mg/dL (0-199) 06/17/16 13:25 LDL Cholesterol Direct 80 mg/dL (0-129) 06/17/16 13:25 HDL Cholesterol 19 MG/DL (30-70) L 06/17/16 13:25 Vitamin B12 260 pg/mL (239-931) 06/18/16 05:20 Thyroxine (T4) 8.07 ug/dl (5.5-11.0) 06/18/16 05:20 TSH 3rd Generation 0.78 mIU/ML (0.46-4.68) 06/18/16 05:20 Anti-Cardiolipin IgG Ab <14 GPL (<=14) 06/17/16 16:20 Anti-Cardiolipin IgA Ab <11 APL (<=11) 06/17/16 16:20 RPR Nonreactive (NONREACTIVE) 06/18/16 05:20 Blood Type O POSITIVE 06/17/16 13:25 Antibody Screen Negative 06/17/16 13:25 BBK History Checked No verified bt 06/17/16 13:25 - Hospital Course Hospital Course: 56 y/o F with PMHx of DM type 2 presented to ED for R/side paresthesias and pain for the past 2 days before admission. She described numbess and painful sensation in UE and LE as well as right side of the face that were increasing over time when she decided to come to ED. She was admitted for evaluation and rule out CVA. While in the telemetry unit patients symptoms improved overnight and labs showed HgbA1c 13, MRI and CT of the head ruled out CVA, Echo EF 65%, Carotid US less than 50% occlusion bilateral. Patient was evaluated by Endocrinology and neurology and recommendation were given to start patient on insulin NPH HS and Elavil 25mg. Today patient is seen at bedside in not acute distress, she states pain resolved and numbness is only present in R/hand but is mild. Denies headaches, nausea, vomiting, fever, CP, palpitations, SOB or vision changes. She is voiding with no difficulty and tolerating PO reg diet. After discussing current and future management options with patient she is decided to DC home and F/U with PMD within 1 week. Discharge Exam - Head Exam Head Exam: ATRAUMATIC, NORMAL INSPECTION - Eye Exam Eye Exam: EOMI, PERRL - Respiratory Exam Respiratory Exam: Clear to PA & Lateral, NORMAL BREATHING PATTERN. absent: Rhonchi, Stridor - Cardiovascular Exam Cardiovascular Exam: REGULAR RHYTHM, +S1, +S2. absent: Systolic Murmur - GI/Abdominal Exam GI & Abdominal Exam: Normal Bowel Sounds, Soft. absent: Guarding, Tenderness - Extremities Exam Extremities exam: full ROM - Back Exam Back exam: NORMAL INSPECTION. absent: CVA tenderness (L), CVA tenderness (R) - Neurological Exam Neurological exam: Alert, CN II-XII Intact, Normal Gait, Oriented x3 - Psychiatric Exam Psychiatric exam: Normal Affect, Normal Mood - Skin Skin Exam: Intact, Normal Color, Warm Discharge Plan - Discharge Medications Prescriptions: Aspirin [Ecotrin] 81 mg PO DAILY #30 tabec Amitriptyline [Elavil] 25 mg PO HS #30 tab GlipiZIDE SR [Glucotrol XL] 10 mg PO BID #60 tab Insulin Human NPH [Humulin N] 12 units SC HS #1 vial Atorvastatin [Lipitor] 10 mg PO DAILY #30 tab Lisinopril [Zestril] 5 mg PO DAILY #30 tab metFORMIN [glucOPHAGE] 1,000 mg PO BID #60 tab - Follow Up Plan Condition: GOOD Disposition: HOME/ ROUTINE Additional Instructions: F/U with PMD in 2-3 days. Patient can go for primary care to [facility] at [address] [facility] if she needs it. [phone]
[2016-06-19] MEDS ORDERED: Insulin NPH Human 100 Units/ml Inj SC SCH (22:00)
[2016-06-22 16:25] LABS: FOLATE 13.9 ng/mL
== END 2016-06-19 11:30 | disposition home or self-care (01) ==
LOC: H.ER 11:20 → INTOOBSV 14:58 → H.ERHOLD 14:58 → H.TEL 17:23
PROVIDERS: ADMIT Family Medicine; ATTEND Family Medicine
DX: R20.0 Anesthesia of skin (principal); E11.65 Type 2 diabetes mellitus with hyperglycemia; Z79.4 Long term (current) use of insulin; E78.5 Hyperlipidemia, unspecified; E55.9 Vitamin D deficiency, unspecified; Z91.11 Patient's noncompliance with dietary regimen; R07.9 Chest pain, unspecified; R51 Headache

== ENCOUNTER 2016-10-02 13:19 | Emergency (ER) | payer OTHER, SELFPAY ==
[2016-10-02 13:19] VITALS: BMI 27.6
[2016-10-02 13:27] VITALS: RESP 20; TEMP 98.3
--- NOTE | 2016-10-02 13:43 | ED PDOC ---
HPI: Abdomen Time Seen by Provider: 10/02/16 13:41 Chief Complaint (Nursing): Abdominal Pain Chief Complaint (Provider): abdominal pain History Per: Patient (56 y/o female here for lower abdominal pain associated with burning with urination. Denies any fevers/chills/back pain. ) Past Medical History Reviewed: Historical Data, Nursing Documentation, Vital Signs Vital Signs: Last Vital Signs Temp 98.3 F 10/02/16 13:24 Pulse 69 10/02/16 14:26 Resp 20 10/02/16 14:26 BP 119/68 10/02/16 14:26 Pulse Ox 99 10/02/16 14:26 - Medical History PMH: Diabetes (type II) Denies: Chronic Kidney Disease - Home Medications Home Medications: Ambulatory Orders Medication Instructions Recorded Amitriptyline [Elavil] 25 mg PO HS #30 tab 06/19/16 Aspirin [Ecotrin] 81 mg PO DAILY #30 tabec 06/19/16 Atorvastatin [Lipitor] 10 mg PO DAILY #30 tab 06/19/16 Ergocalciferol (Vitamin D2) 50,000 unit PO QWK #12 capsule 06/19/16 [Vitamin D2] GlipiZIDE SR [Glucotrol XL] 10 mg PO BID #60 tab 06/19/16 Insulin Human NPH [Humulin N] 12 units SC HS #1 vial 06/19/16 Lisinopril [Zestril] 5 mg PO DAILY #30 tab 06/19/16 metFORMIN [glucOPHAGE] 1,000 mg PO BID #60 tab 06/19/16 Ciprofloxacin HCl [Cipro] 500 mg PO BID #6 tablet 10/02/16 - Allergies Allergies/Adverse Reactions: Allergies Allergy/AdvReac Type Severity Reaction Status Date / Time No Known Allergies Allergy Verified 04/19/15 15:28 Review of Systems ROS Statement: Except As Marked, All Systems Reviewed And Found Negative Physical Exam - Reviewed Nursing Documentation Reviewed: Yes Vital Signs Reviewed: Yes - Physical Exam Appears: Positive for: Well, Non-toxic, No Acute Distress Head Exam: Positive for: ATRAUMATIC, NORMAL INSPECTION, NORMOCEPHALIC Skin: Positive for: Normal Color, Warm, DRY Eye Exam: Positive for: EOMI, Normal appearance, PERRL ENT: Positive for: Normal ENT Inspection Neck: Positive for: Normal, Painless ROM Cardiovascular/Chest: Positive for: Regular Rate, Rhythm Respiratory: Positive for: CNT, Normal Breath Sounds Gastrointestinal/Abdominal: Positive for: Normal Exam, Bowel Sounds, Soft Back: Positive for: Normal Inspection. Negative for: L CVA Tenderness, R CVA Tenderness Extremity: Positive for: Normal ROM Neurologic/Psych: Positive for: Alert, Oriented - Laboratory Results Result Diagrams: 10/02/16 14:25 10/02/16 14:25 - ECG O2 Sat by Pulse Oximetry: 98 - Progress ED Course And Treament: ELEVATED BS >300 AT BEDSIDE NS 1 LITER WIDE OPEN PATIENT REQUESTS EVALUATION OF LEFT KNEE. HAS HAD INJURY 1 MONTH PRIOR AFTER FALL. HAS HAD ONGOING KNEE PAIN. KNEE: HEALING ABRASION.NO EFFUSION. MINIMAL TENDERNSS. ABLE TO FLEX AND EXTEND REPEAT BS 222 WILL SEND HOME WITH UTI/HYPERGLYCEMIA INSTRUCTIONS. Disposition - Clinical Impression Clinical Impression: Hyperglycemia, UTI (urinary tract infection) - Disposition Condition: FAIR Prescriptions: Ciprofloxacin HCl [Cipro] 500 mg PO BID #6 tablet Instructions: Urinary Tract Infection in Women (GEN), Diabetic Hyperglycemia ( ED) Print Language: AZERI
[2016-10-02] MEDS ORDERED: Sodium Chloride 0.9% 1,000 ML IV STA (14:10)
[2016-10-02 14:26] VITALS: BP 119/68; PULSE 69
[2016-10-02 14:27] LABS: SQUAMOUS EPITHIAL < 1 /hpf (0-5); URINE BACTERIA RARE (<OCC); URINE BILIRUBIN NEGATIVE (NEGATIVE); URINE BLOOD SMALL (NEGATIVE); URINE CLARITY SLIGHTY-CLOUDY (Clear); URINE COLOR YELLOW (YELLOW); URINE GLUCOSE (UA) >=500 mg/dL (Normal); URINE LEUKOCYTE ESTERASE MOD Leu/uL (Negative); URINE NITRATE NEGATIVE (NEGATIVE); URINE PROTEIN NEGATIVE (NEGATIVE); URINE UROBILINOGEN 0.2-1.0 mg/dL (0.2-1.0)
[2016-10-02 14:33] LABS: BASO # 0.1 K/uL (0.0-0.2); BASO % 0.7 % (0.0-2.0); EOS # 0.1 K/uL (0.0-0.7); EOS % 1.7 % (0.0-4.0); LYMPH % 38.9 % (20.0-40.0); MEAN CELL VOLUME 92.2 fl (81.0-99.0); MEAN CORPUSCULAR HEMOGLOBIN 30.9 pg (27.0-31.0); MEAN CORPUSCULAR HGB CONC 33.5 g/dL (33.0-37.0); MEAN PLATELET VOLUME 9.9 fl (7.2-11.7); MONO # 0.6 K/uL (0.0-0.8); MONO % 7.1 % (0.0-10.0); NEUT % 51.6 % (50.0-75.0); RBC 4.86 Mil/uL (3.80-5.20); RED CELL DISTRIBUTION WIDTH 12.9 % (11.5-14.5); WHITE BLOOD COUNT 7.8 K/uL (4.8-10.8)
[2016-10-02 14:52] LABS: ALB/GLOB RATIO 1.5 (1.0-2.1); ALBUMIN 4.3 g/dL (3.5-5.0); ALT/SGPT 43 U/L (9-52); AST/SGOT 17 U/L (14-36); BLOOD UREA NITROGEN 12 mg/dl (7-17); CALCIUM 9.3 mg/dL (8.4-10.2); GFR AFRICAN-AMERICAN > 60; GFR NON-AFRICAN AMERICAN > 60
--- NOTE | 2016-10-02 15:54 | RAD ---
PROCEDURE: Left Knee Radiographs. HISTORY: COMPARISON: None available FINDINGS: BONES: No acute displaced fracture. Ossific excrescence along the lateral aspect of the proximal tibia. JOINTS: No dislocation. JOINT EFFUSION: No significant joint effusion. OTHER FINDINGS: None. IMPRESSION: No acute displaced fracture, dislocation, or significant joint effusion identified.If symptoms persist, or if there is continued clinical concern, x-ray follow-up in 7-10 days should be considered. Additional findings as above.
[2016-10-02 17:21] VITALS: O2SAT 98
== END 2016-10-02 17:21 | disposition home or self-care (01) ==
LOC: H.ER 13:19
DX: N39.0 Urinary tract infection, site not specified (principal); E11.65 Type 2 diabetes mellitus with hyperglycemia

== ENCOUNTER 2017-02-15 06:01 | Emergency (ER) | payer SELFPAY ==
[2017-02-15 06:10] VITALS: BMI 29.6
[2017-02-15 06:12] VITALS: TEMP 98.3; O2SAT 97
[2017-02-15] MEDS ORDERED: Sodium Chloride 0.9% 1,000 ML IV STA (06:19)
--- NOTE | 2017-02-15 06:32 | ED PDOC ---
HPI: Abdomen Time Seen by Provider: 02/15/17 06:07 Chief Complaint (Nursing): Abdominal Pain Chief Complaint (Provider): Abdominal Pain History Per: Patient History/Exam Limitations: no limitations Onset/Duration Of Symptoms: Hrs (x5), Sudden Onset Outside of [place] travel?: No Current Symptoms Are (Timing): Still Present Location Of Pain/Discomfort: RUQ, Epigastric, LUQ Quality Of Discomfort: Sharp Associated Symptoms: Vomiting, Diarrhea, Back Pain. denies: Fever Additional Complaint(s): 56 year old female presents to ED with complaints of abdominal pain x5 hours and has a past medical history of DM (on insulin), HTN, and dyslipidemia. Patient describes pain as constant, sharp, present in the mid/upper abdominal regions, and radiating to the back. (+) vomiting x2 episodes (non-bilious, non- bloody) and diarrhea x2 episodes (non-bloody). (-) fever. PCP: Delmer jones Past Medical History Reviewed: Historical Data, Nursing Documentation, Vital Signs Vital Signs: Last Vital Signs Temp 98.3 F 02/15/17 06:10 Pulse 84 02/15/17 11:18 Resp 18 02/15/17 11:18 BP 130/70 02/15/17 11:18 Pulse Ox 97 02/16/17 15:26 - Medical History PMH: Diabetes (type II), HTN Denies: Chronic Kidney Disease Other PMH: dyslipidemia - Surgical History Other surgeries: tubal ligation - Family History Family History: States: No Known Family Hx - Social History Current smoker - smoking cessation education provided: No Ex-Smoker (has not smoked in the last 12 months): No Alcohol: None Drugs: Denies - Home Medications Home Medications: Ambulatory Orders Medication Instructions Recorded Amitriptyline [Elavil] 25 mg PO HS #30 tab 06/19/16 Aspirin [Ecotrin] 81 mg PO DAILY #30 tabec 06/19/16 Atorvastatin [Lipitor] 10 mg PO DAILY #30 tab 06/19/16 Ergocalciferol (Vitamin D2) 50,000 unit PO QWK #12 capsule 06/19/16 [Vitamin D2] GlipiZIDE SR [Glucotrol XL] 10 mg PO BID #60 tab 06/19/16 Insulin Human NPH [Humulin N] 12 units SC HS #1 vial 04/07/17 Lisinopril [Zestril] 5 mg PO DAILY #30 tab 06/19/16 metFORMIN [glucOPHAGE] 1,000 mg PO BID #60 tab 06/19/16 Ciprofloxacin HCl [Cipro] 500 mg PO BID #6 tablet 10/02/16 Dicyclomine [Bentyl] 20 mg PO QID PRN #10 tab 02/15/17 Ondansetron ODT [Zofran ODT] 4 mg PO Q8H PRN #20 odt 02/15/17 - Allergies Allergies/Adverse Reactions: Allergies Allergy/AdvReac Type Severity Reaction Status Date / Time No Known Allergies Allergy Verified 02/15/17 06:10 Review of Systems ROS Statement: Except As Marked, All Systems Reviewed And Found Negative Constitutional: Negative for: Fever Gastrointestinal: Positive for: Vomiting, Abdominal Pain, Diarrhea Musculoskeletal: Positive for: Back Pain (pain radiates to back) Physical Exam - Reviewed Nursing Documentation Reviewed: Yes Vital Signs Reviewed: Yes - Physical Exam Appears: Positive for: Non-toxic, Uncomfortable Skin: Positive for: Normal Color, Warm, Dry Eye Exam: Positive for: Normal appearance ENT: Negative for: Normal ENT Inspection (dry mucous membranes) Cardiovascular/Chest: Positive for: Regular Rate, Rhythm. Negative for: Murmur Respiratory: Positive for: Normal Breath Sounds. Negative for: Respiratory Distress Gastrointestinal/Abdominal: Positive for: Soft, Tenderness (RUQ/epigastric tenderness) Back: Positive for: Normal Inspection Extremity: Positive for: Normal ROM. Negative for: Deformity Neurologic/Psych: Positive for: Alert, Oriented. Negative for: Motor/Sensory Deficits - Laboratory Results Result Diagrams: 02/15/17 06:59 02/15/17 06:59 - ECG O2 Sat by Pulse Oximetry: 97 (RA) Pulse Ox Interpretation: Normal Medical Decision Making Medical Decision Makin Initial impression: abdominal pain in setting of known diabetic disease Initial plan: * EKG * Labs * Lipase * NS IV * Pepcid 20mg IV * Toradol 15mg IV * Zofran Inj 4mg IV * UA * US ABD LIMITED * Re-eval Scribe Attestation: Documented by Karin Moreno acting as a scribe for Jonathan Nava MD. Scribe Attestation: All medical record entries made by the Scribe were at my direction and personally dictated by me. I have reviewed the chart and agree that the record accurately reflects my personal performance of the history, physical exam, medical decision making, and the department course for this patient. I have also personally directed, reviewed, and agree with the discharge instructions and disposition. Disposition - Clinical Impression Clinical Impression: Gastroenteritis - Disposition Referrals: [facility] [Outside] Disposition Time: 07:00 Condition: FAIR Prescriptions: Dicyclomine [Bentyl] 20 mg PO QID PRN #10 tab PRN Reason: Pain, Moderate (4-7) Ondansetron ODT [Zofran ODT] 4 mg PO Q8H PRN #20 odt PRN Reason: Nausea/Vomiting Instructions: Gastroenteritis (ED) Forms: [employer] (Luxembourgish)
[2017-02-15 07:11] LABS: BASO % 0.2 % (0.0-2.0); EOS # 0.1 K/uL (0.0-0.7); EOS % 0.8 % (0.0-4.0); HEMATOCRIT 46.3 % (34.0-47.0); LYMPH # 0.7 K/uL (1.0-4.3); LYMPH % 5.7 % (20.0-40.0); MEAN CELL VOLUME 91.2 fl (81.0-99.0); MEAN CORPUSCULAR HEMOGLOBIN 30.9 pg (27.0-31.0); MEAN CORPUSCULAR HGB CONC 33.9 g/dL (33.0-37.0); MEAN PLATELET VOLUME 10.8 fl (7.2-11.7); MONO # 0.4 K/uL (0.0-0.8); MONO % 3.6 % (0.0-10.0); NEUT % 89.7 % (50.0-75.0); NRBC % 0.1 % (0.0-0.0); PLATELET COUNT 141 K/uL (130-400); RED CELL DISTRIBUTION WIDTH 13.2 % (11.5-14.5); WHITE BLOOD COUNT 12.2 K/uL (4.8-10.8)
[2017-02-15 07:25] LABS: ALB/GLOB RATIO 1.3 (1.0-2.1); ALKALINE PHOSPHATASE 120 U/L (38-126); ALT/SGPT 43 U/L (9-52); AST/SGOT 26 U/L (14-36); BLOOD UREA NITROGEN 13 mg/dl (7-17); CALCIUM 9.2 mg/dL (8.4-10.2); CARBON DIOXIDE 25 mmol/L (22-30); CHLORIDE 102 mmol/L (98-107); GFR AFRICAN-AMERICAN > 60; GLUCOSE,RANDOM 314 mg/dL (65-105); LIPASE 122 U/L (23-300); POTASSIUM 4.3 MMOL/L (3.6-5.0); SODIUM 139 mmol/l (132-148); TOTAL PROTEIN 7.6 G/DL (6.3-8.2)
[2017-02-15 07:41] LABS: RBC URINE 1 /hpf (0-3); URINE BILIRUBIN NEGATIVE (NEGATIVE); URINE BLOOD NEGATIVE (NEGATIVE); URINE COLOR YELLOW (YELLOW); URINE GLUCOSE (UA) >=500 mg/dL (Normal); URINE KETONE 20 mg/dL (NEGATIVE); URINE LEUKOCYTE ESTERASE NEG Leu/uL (Negative); URINE PROTEIN 30 mg/dL (NEGATIVE); URINE UROBILINOGEN 0.2-1.0 mg/dL (0.2-1.0); WBC URINE 1 /hpf (0-5)
--- NOTE | 2017-02-15 07:49 | ED PDOC ---
- Laboratory Results Result Diagrams: 02/15/17 06:59 02/15/17 06:59 - ECG O2 Sat by Pulse Oximetry: 97 (RA) Medical Decision Making Medical Decision Making: Time: 07:00 --Patient signed out to me by Dr. Nava pending ultrasound Time: 10:06 Abdomen US Findings: LIVER: Measures 15.0 cm in length. There is diffuse increased echogenicity of the liver parenchyma. No mass. No intrahepatic bile duct dilatation. GALLBLADDER: There are no gallstones or pericholecystic fluid. There is mild diffuse wall thickening. The sonographic Burkett's sign is negative COMMON BILE DUCT: Measures 5.0 mm. No stones. No dilatation. PANCREAS: Normal in size. No mass. No ductal dilatation. RIGHT KIDNEY: Measures 13.3 cm in length. Normal echogenicity. No calculus, mass, or hydronephrosis. AORTA: No aneurysmal dilatation. IVC: Unremarkable. OTHER FINDINGS: None . IMPRESSION: Diffuse increased echogenicity in the liver may reflect hepatic steatosis however parenchymal infectious/ inflammatory etiologies cannot be entirely excluded. Clinical and laboratory correlation is advised. Mild diffuse gallbladder wall thickening, nonspecific. No cholelithiasis, pericholecystic fluid or positive sonographic Burkett's sign. Scribe Attestation: Documented by Ramon Sanchez acting as a scribe for Marian Velasquez MD. Scribe Attestation: All medical record entries made by the Scribe were at my direction and personally dictated by me. I have reviewed the chart and agree that the record accurately reflects my personal performance of the history, physical exam, medical decision making, and the department course for this patient. I have also personally directed, reviewed, and agree with the discharge instructions and disposition. Disposition - Clinical Impression Clinical Impression: Gastroenteritis - POA Present On Arrival: None - Disposition Referrals: [facility] [Outside] Disposition: Routine/Home Disposition Time: 11:03 Condition: STABLE Prescriptions: Dicyclomine [Bentyl] 20 mg PO QID PRN #10 tab PRN Reason: Pain, Moderate (4-7) Ondansetron ODT [Zofran ODT] 4 mg PO Q8H PRN #20 odt PRN Reason: Nausea/Vomiting Instructions: Gastroenteritis (ED) Forms: [email or web address] (Danish)
--- NOTE | 2017-02-15 10:07 | US ---
HISTORY: RUQ pain COMPARISON: None. TECHNIQUE: Grayscale imaging was performed. FINDINGS: LIVER: Measures 15.0 cm in length. There is diffuse increased echogenicity of the liver parenchyma. No mass. No intrahepatic bile duct dilatation. GALLBLADDER: There are no gallstones or pericholecystic fluid. There is mild diffuse wall thickening. The sonographic Burkett's sign is negative COMMON BILE DUCT: Measures 5.0 mm. No stones. No dilatation. PANCREAS: Normal in size. No mass. No ductal dilatation. RIGHT KIDNEY: Measures 13.3 cm in length. Normal echogenicity. No calculus, mass, or hydronephrosis. AORTA: No aneurysmal dilatation. IVC: Unremarkable. OTHER FINDINGS: None . IMPRESSION: Diffuse increased echogenicity in the liver may reflect hepatic steatosis however parenchymal infectious/ inflammatory etiologies cannot be entirely excluded. Clinical and laboratory correlation is advised. Mild diffuse gallbladder wall thickening, nonspecific. No cholelithiasis, pericholecystic fluid or positive sonographic Burkett's sign.
[2017-02-15 11:01] LABS: NEUTROPHIL 81 % (42-75); TOTAL CELLS COUNTED 100
[2017-02-15 11:19] VITALS: BP 130/70; PULSE 84; RESP 18
--- NOTE | 2017-02-15 13:44 | CARD ---
APPROVED REPORT EKG Measurement Heart [id number] <Conclusion> Normal sinus rhythm Normal ECG
== END 2017-02-15 11:17 | disposition home or self-care (01) ==
LOC: H.ER 06:01
DX: K52.9 Noninfective gastroenteritis and colitis, unspecified (principal)
CPT/HCPCS: 76705; 80053; 81003; 82948; 83690; 85025; 93005; 96374; 99284; J1885; J2405; J7040

== ENCOUNTER 2017-11-23 13:19 | Emergency (ER) | payer OTHER, SELFPAY ==
[2017-11-23 13:20] VITALS: BMI 29.6
[2017-11-23 13:26] VITALS: BP 128/81; PULSE 78; RESP 18; TEMP 97.8; O2SAT 100
--- NOTE | 2017-11-23 13:39 | ED PDOC ---
HPI: Female Pain Time Seen by Provider: 11/23/17 13:25 Chief Complaint (Nursing): Female Genitourinary Chief Complaint (Provider): dysuria History Per: Patient Onset/Duration Of Symptoms: Days (x3) Current Symptoms Are (Timing): Still Present Associated Symptoms: denies: Fever, Chills, Nausea, Vomiting Additional Complaint(s): Marina Warner is a 57 year old female, with a past medical history of diabetes, who presents to the emergency department complaining of dysuria x3 days. She denies any hematuria, nausea, vomiting, fever, chills, vaginal bleeding or discharge. PMD: Dr. Phipps, [facility] in [facility] Abnormal Vaginal Bleeding: No Past Medical History Reviewed: Historical Data, Nursing Documentation, Vital Signs Vital Signs: Last Vital Signs Temp 97.8 F 11/23/17 13:23 Pulse 78 11/23/17 13:23 Resp 18 11/23/17 13:23 BP 128/81 11/23/17 13:23 Pulse Ox 100 11/23/17 13:23 - Medical History PMH: Diabetes - Surgical History Other surgeries: tubal ligation - Family History Family History: States: No Known Family Hx - Living Arrangements Living Arrangements: With Family - Social History Current smoker - smoking cessation education provided: No Alcohol: None Drugs: Denies - Home Medications Home Medications: Ambulatory Orders Medication Instructions Recorded Amitriptyline [Elavil] 25 mg PO HS #30 tab 06/19/16 Aspirin [Ecotrin] 81 mg PO DAILY #30 tabec 06/19/16 Atorvastatin [Lipitor] 10 mg PO DAILY #30 tab 06/19/16 Ergocalciferol (Vitamin D2) 50,000 unit PO QWK #12 capsule 06/19/16 [Vitamin D2] GlipiZIDE SR [Glucotrol XL] 10 mg PO BID #60 tab 06/19/16 Insulin Human NPH [Humulin N] 12 units SC HS #1 vial 06/19/16 Lisinopril [Zestril] 5 mg PO DAILY #30 tab 06/19/16 metFORMIN [glucOPHAGE] 1,000 mg PO BID #60 tab 06/19/16 Ciprofloxacin HCl [Cipro] 500 mg PO BID #6 tablet 10/02/16 Dicyclomine [Bentyl] 20 mg PO QID PRN #10 tab 02/15/17 Ondansetron ODT [Zofran ODT] 4 mg PO Q8H PRN #20 odt 02/15/17 Nitrofurantoin Macrocrystals 100 mg PO BID #14 cap 11/23/17 [Macrobid] - Allergies Allergies/Adverse Reactions: Allergies Allergy/AdvReac Type Severity Reaction Status Date / Time No Known Allergies Allergy Verified 11/23/17 13:24 Review of Systems ROS Statement: Except As Marked, All Systems Reviewed And Found Negative Constitutional: Negative for: Fever, Chills Gastrointestinal: Negative for: Nausea, Vomiting Genitourinary Female: Positive for: Dysuria, Frequency. Negative for: Incontinence, Hematuria, Vaginal Discharge, Vaginal Bleeding Physical Exam - Reviewed Nursing Documentation Reviewed: Yes Vital Signs Reviewed: Yes - Physical Exam Appears: Positive for: Well, Non-toxic, No Acute Distress Head Exam: Positive for: ATRAUMATIC, NORMAL INSPECTION, NORMOCEPHALIC Skin: Positive for: Normal Color. Negative for: Rash Eye Exam: Positive for: Normal appearance Cardiovascular/Chest: Positive for: Regular Rate, Rhythm Respiratory: Positive for: Normal Breath Sounds. Negative for: Respiratory Distress Gastrointestinal/Abdominal: Positive for: Normal Exam, Soft. Negative for: Tenderness, Guarding, Rebound Back: Positive for: Normal Inspection. Negative for: L CVA Tenderness, R CVA Tenderness, Vertebral Tenderness Extremity: Positive for: Normal ROM (upper and lower extremities). Negative for : Deformity, Swelling Neurologic/Psych: Positive for: Alert, Oriented. Negative for: Motor/Sensory Deficits - Laboratory Results Urine dip results: Positive for: Leukocyte Esterase, Blood, Glucose. Negative for: Nitrate, Ketones, Bilirubin, Protein - ECG O2 Sat by Pulse Oximetry: 100 (RA) Pulse Ox Interpretation: Normal Medical Decision Making Medical Decision Making: Time: 13:25 Initial Impression: 57 y/o with dysuria x 3 days Initial Plan: --Urine dipstick --Urine culture --Reevaluation 13:38 -Patient is medically stable, and requires no further treatment in the ED at this time. Patient will be discharged home with Rx for Macrobid. Counseling was provided and all questions were answered regarding diagnosis and need for follow up with PMD. There is agreement to discharge plan. Return if symptoms persist or worsen. Scribe Attestation: Documented by Israel Boyle, acting as a scribe for Kendy Wooten PA-C Provider Scribe Attestation: All medical record entries made by the Scribe were at my direction and personally dictated by me. I have reviewed the chart and agree that the record accurately reflects my personal performance of the history, physical exam, medical decision making, and the department course for this patient. I have also personally directed, reviewed, and agree with the discharge instructions and disposition. Disposition - Clinical Impression Clinical Impression: UTI (urinary tract infection) - Patient ED Disposition Is Patient to be Admitted: No Counseled Patient/Family Regarding: Studies Performed, Diagnosis, Need For Followup, Rx Given - Disposition Referrals: Capri Phipps MD [Medical Doctor] - Disposition: Routine/Home Disposition Time: 13:38 Condition: STABLE Additional Instructions: Take meds as directed. Drink plenty of fluids. Follow up with primary care doctor in 2-3 days. Prescriptions: Nitrofurantoin Macrocrystals [Macrobid] 100 mg PO BID #14 cap Instructions: Urinary Tract Infections in Adults Forms: [employer] (Croatian) Print Language: TAJIK
== END 2017-11-23 14:33 | disposition home or self-care (01) ==
LOC: H.ER 13:19
DX: N39.0 Urinary tract infection, site not specified (principal); E11.9 Type 2 diabetes mellitus without complications; Z79.84 Long term (current) use of oral hypoglycemic drugs; F32.9 Major depressive disorder, single episode, unspecified; F41.9 Anxiety disorder, unspecified

== ENCOUNTER 2017-12-30 10:07 | Emergency (ER) | payer OTHER ==
[2017-12-30 10:07] VITALS: BMI 29.6
[2017-12-30 10:18] VITALS: O2SAT 100
--- NOTE | 2017-12-30 10:57 | ED PDOC ---
Upper Extremity Pain/Injury Time Seen by Provider: 12/30/17 10:19 Chief Complaint (Nursing): Upper Extremity Problem/Injury Chief Complaint (Provider): Shoulder pain, knee pain, calf pain History Per: Patient Additional Complaint(s): Pt is a 57 yo, PMH of DM and HTN, presents to ED after a fall last night, resulting in right shoulder and arm pain. Pt reports she fell onto her right knee and then right shoulder. Pt has not taken anything for pain thus far. Denies striking head or LOC. Past Medical History Reviewed: Nursing Documentation, Vital Signs Vital Signs: Last Vital Signs Temp 98.0 F 12/30/17 10:17 Pulse 69 12/30/17 10:17 Resp 18 12/30/17 10:17 BP 110/72 12/30/17 10:17 Pulse Ox 100 12/30/17 10:17 - Medical History PMH: Diabetes, HTN Denies: Chronic Kidney Disease - Family History Family History: States: Unknown Family Hx - Living Arrangements Living Arrangements: With Family - Social History Current smoker - smoking cessation education provided: No Alcohol: None Drugs: Denies - Home Medications Home Medications: Ambulatory Orders Medication Instructions Recorded Amitriptyline [Elavil] 25 mg PO HS #30 tab 06/19/16 Aspirin [Ecotrin] 81 mg PO DAILY #30 tabec 06/19/16 Atorvastatin [Lipitor] 10 mg PO DAILY #30 tab 06/19/16 Ergocalciferol (Vitamin D2) 50,000 unit PO QWK #12 capsule 06/19/16 [Vitamin D2] GlipiZIDE SR [Glucotrol XL] 10 mg PO BID #60 tab 06/19/16 Insulin Human NPH [Humulin N] 12 units SC HS #1 vial 06/19/16 Lisinopril [Zestril] 5 mg PO DAILY #30 tab 06/19/16 metFORMIN [glucOPHAGE] 1,000 mg PO BID #60 tab 06/19/16 Ciprofloxacin HCl [Cipro] 500 mg PO BID #6 tablet 10/02/16 Dicyclomine [Bentyl] 20 mg PO QID PRN #10 tab 02/15/17 Ondansetron ODT [Zofran ODT] 4 mg PO Q8H PRN #20 odt 02/15/17 Nitrofurantoin Macrocrystals 100 mg PO BID #14 cap 11/23/17 [Macrobid] Cyclobenzaprine [Cyclobenzaprine 10 mg PO TID #20 tab 12/30/17 HCl] Ibuprofen [Motrin] 600 mg PO Q6 #20 tab 12/30/17 - Allergies Allergies/Adverse Reactions: Allergies Allergy/AdvReac Type Severity Reaction Status Date / Time No Known Allergies Allergy Verified 11/23/17 13:24 Review of Systems ROS Statement: Except As Marked, All Systems Reviewed And Found Negative Musculoskeletal: Positive for: Shoulder Pain, Leg Pain Physical Exam - Reviewed Nursing Documentation Reviewed: Yes Vital Signs Reviewed: Yes - Physical Exam Appears: Positive for: Well, Non-toxic, No Acute Distress Head Exam: Positive for: ATRAUMATIC, NORMAL INSPECTION, NORMOCEPHALIC Skin: Positive for: Normal Color, Warm, DRY Eye Exam: Positive for: EOMI, Normal appearance, PERRL ENT: Positive for: Normal ENT Inspection Neck: Positive for: Normal, Painless ROM Cardiovascular/Chest: Positive for: Regular Rate, Rhythm Respiratory: Positive for: CNT, Normal Breath Sounds Gastrointestinal/Abdominal: Positive for: Normal Exam, Soft Back: Positive for: Normal Inspection Extremity: Positive for: Normal ROM, Tenderness (right shoulder, lateral aspect. no edema, ecchymosis. Tendernss over patellas as well and right claf. (-) holmans sign). Negative for: Deformity, Swelling Neurologic/Psych: Positive for: Alert, Oriented - ECG O2 Sat by Pulse Oximetry: 100 Medical Decision Making Medical Decision Making: Pt medicated with Motrin PO. Ice pack applied. XRs obtained: NAD, as read by SANTY Advised RICE therapy at home as well. Disposition - Clinical Impression Clinical Impression: Shoulder contusion, Knee contusion - Patient ED Disposition Is Patient to be Admitted: No - Disposition Disposition: Routine/Home Disposition Time: 14:26 Condition: STABLE Prescriptions: Cyclobenzaprine [Cyclobenzaprine HCl] 10 mg PO TID #20 tab Ibuprofen [Motrin] 600 mg PO Q6 #20 tab Instructions: Contusion (DC) Forms: [employer] (Malay) Print Language: ARMENIAN
--- NOTE | 2017-12-30 12:14 | US ---
Date of service: 12/30/2017 HISTORY: pain s/.p fall. PRIORS: None. FINDINGS: 2-D, color and duplex Doppler analysis of the right lower extremity venous circulation using routine protocol from the femoral veins through the popliteal veins. Venous compressibility: Normal. Flow and augmentation patterns: Normal. Visualized veins upper third of calf: Normal. Marks cyst: None. IMPRESSION: No sonographic or Doppler evidence for DVT in right lower extremity.
--- NOTE | 2017-12-30 12:19 | RAD ---
Date of service: 12/30/2017 PROCEDURE: Radiographs of the Right Shoulder HISTORY: pain s/p fall COMPARISON: No prior. FINDINGS: BONES: No fracture. JOINTS: Mild glenohumeral osteoarthritis. Mild acromioclavicular degenerative arthritis. SOFT TISSUES: Normal. OTHER FINDINGS: None. IMPRESSION: No acute fracture.
--- NOTE | 2017-12-30 12:20 | RAD ---
Date of service: 12/30/2017 PROCEDURE: Right Knee Radiographs. HISTORY: pain s/p fall COMPARISON: None. FINDINGS: BONES: Normal. No fracture. JOINTS: Normal. No osteoarthritis. JOINT EFFUSION: None. OTHER FINDINGS: None. IMPRESSION: Normal radiographs of the right knee.
[2017-12-30 13:15] VITALS: BP 114/84; PULSE 72; RESP 16; TEMP 98.1
== END 2017-12-30 14:15 | disposition home or self-care (01) ==
LOC: H.ER 10:07
DX: S40.011A Contusion of right shoulder, initial encounter (principal); S80.01XA Contusion of right knee, initial encounter; W19.XXXA Unspecified fall, initial encounter; Y92.89 Other specified places as the place of occurrence of the external cause; E11.9 Type 2 diabetes mellitus without complications; I10 Essential (primary) hypertension; Z79.84 Long term (current) use of oral hypoglycemic drugs

== ENCOUNTER 2018-03-28 14:36 | Emergency (ER) | payer OTHER ==
[2018-03-28 15:01] VITALS: BMI 28.3
[2018-03-28 15:02] VITALS: RESP 18; O2SAT 99
--- NOTE | 2018-03-28 15:20 | ED PDOC ---
HPI: Skin/Bite Injury Time Seen by Provider: 03/28/18 15:08 Chief Complaint (Nursing): Abnormal Skin Integrity Chief Complaint (Provider): Abnormal Skin Integrity History Per: Talent Coordinator (mariela ID#[id number]) History/Exam Limitations: language barrier (armenian) Current Symptoms Are (Timing): Still Present Additional Complaint(s): 57 year old female with pmHx of HTN and DM, presents to ED for an evaluation of painful bumps on scalp for 2 months but increased in numbers in the last week. Patient reports drainage intermittently from clear to yellow coloration. She denies fever, chills, nausea, vomiting, similar symptoms in the past, or new hair products. PCP: Dr. Trinh Phipps Past Medical History Reviewed: Historical Data, Nursing Documentation, Vital Signs Vital Signs: Last Vital Signs Temp 98.4 F 03/28/18 15:01 Pulse 77 03/28/18 15:01 Resp 18 03/28/18 15:01 BP 137/76 03/28/18 15:01 Pulse Ox 99 03/28/18 15:01 - Medical History PMH: Diabetes, HTN Denies: Chronic Kidney Disease - Surgical History Surgical History: No Surg Hx - Family History Family History: States: Unknown Family Hx - Home Medications Home Medications: Ambulatory Orders Medication Instructions Recorded Amitriptyline [Elavil] 25 mg PO HS #30 tab 06/19/16 Aspirin [Ecotrin] 81 mg PO DAILY #30 tabec 06/19/16 Atorvastatin [Lipitor] 10 mg PO DAILY #30 tab 06/19/16 Ergocalciferol (Vitamin D2) 50,000 unit PO QWK #12 capsule 06/19/16 [Vitamin D2] GlipiZIDE SR [Glucotrol XL] 10 mg PO BID #60 tab 06/19/16 Insulin Human NPH [Humulin N] 12 units SC HS #1 vial 06/19/16 Lisinopril [Zestril] 5 mg PO DAILY #30 tab 06/19/16 metFORMIN [glucOPHAGE] 1,000 mg PO BID #60 tab 06/19/16 Ciprofloxacin HCl [Cipro] 500 mg PO BID #6 tablet 10/02/16 Dicyclomine [Bentyl] 20 mg PO QID PRN #10 tab 02/15/17 Ondansetron ODT [Zofran ODT] 4 mg PO Q8H PRN #20 odt 02/15/17 Nitrofurantoin Macrocrystals 100 mg PO BID #14 cap 11/23/17 [Macrobid] Cyclobenzaprine [Cyclobenzaprine 10 mg PO TID #20 tab 12/30/17 HCl] Ibuprofen [Motrin] 600 mg PO Q6 #20 tab 12/30/17 Cephalexin [Keflex] 500 mg PO Q6 #27 capsule 03/28/18 Ibuprofen [Motrin Tab] 1 tab PO Q6 PRN #15 tab 03/28/18 Sulfamethoxazole/Trimethoprim 1 tab PO BID #13 tab 03/28/18 [Bactrim DS 800 mg-160 mg] - Allergies Allergies/Adverse Reactions: Allergies Allergy/AdvReac Type Severity Reaction Status Date / Time No Known Allergies Allergy Verified 11/23/17 13:24 Review of Systems ROS Statement: Except As Marked, All Systems Reviewed And Found Negative Constitutional: Negative for: Fever, Chills Gastrointestinal: Negative for: Nausea, Vomiting Skin: Positive for: Other (painful scalp lesions with watery drainage) Physical Exam - Reviewed Nursing Documentation Reviewed: Yes Vital Signs Reviewed: Yes - Physical Exam Appears: Positive for: Well, Non-toxic, No Acute Distress Head Exam: Positive for: ATRAUMATIC, NORMOCEPHALIC. Negative for: NORMAL INSPECTION Skin: Positive for: Rash (left parietal scalp papule with +tenderness/erythema; smaller erythematous papules to right parietal scalp; no active drainage) Neurologic/Psych: Positive for: Alert, Oriented. Negative for: Motor/Sensory Deficits - ECG O2 Sat by Pulse Oximetry: 99 (RA) Pulse Ox Interpretation: Normal Medical Decision Making Medical Decision Making: Time: 1430 --Upon provider evaluation, patient is medically stable and requires no further treatment in the ED at this time. Patient will be discharged home with Rx for Keflex, Motrin, and Bactrim DS. Counseling was provided and all questions were answered regarding diagnosis. There is agreement to discharge plan. Advised to follow up with dermatology. Return precautions discussed. Clinical Impression: Folliculitis Scribe Attestation: Documented by Pauly Jackson, acting as a scribe for Carolynn Avitia PA-C. Provider Scribe Attestation: All medical record entries made by the Scribe were at my direction and personally dictated by me. I have reviewed the chart and agree that the record accurately reflects my personal performance of the history, physical exam, medical decision making, and the department course for this patient. I have also personally directed, reviewed, and agree with the discharge instructions and disposition. Disposition - Clinical Impression Clinical Impression: Folliculitis - Patient ED Disposition Is Patient to be Admitted: No Counseled Patient/Family Regarding: Diagnosis, Need For Followup, Rx Given - Disposition Referrals: [facility] [Outside] Disposition: Routine/Home Disposition Time: 15:30 Condition: STABLE Additional Instructions: Seguimiento con un dermatlogo Prescriptions: Cephalexin [Keflex] 500 mg PO Q6 #27 capsule Ibuprofen [Motrin Tab] 1 tab PO Q6 PRN #15 tab PRN Reason: Pain, Moderate (4-7) Sulfamethoxazole/Trimethoprim [Bactrim DS 800 mg-160 mg] 1 tab PO BID #13 tab Instructions: Folliculitis Print Language: ROMANSH
[2018-03-28] MEDS ORDERED: Tmp-Smz 800 mg-160 mg DS Tab PO STA (15:34)
[2018-03-28] MEDS ORDERED: Tmp-Smz 800 mg-160 mg DS Tab ONE (15:51)
[2018-03-28 16:27] VITALS: BP 130/78; PULSE 78; TEMP 98
== END 2018-03-28 16:15 | disposition home or self-care (01) ==
LOC: H.ER 14:36
DX: L73.9 Follicular disorder, unspecified (principal); E11.9 Type 2 diabetes mellitus without complications; Z79.84 Long term (current) use of oral hypoglycemic drugs; I10 Essential (primary) hypertension; Z79.82 Long term (current) use of aspirin

== ENCOUNTER 2018-04-23 01:45 | Observation (INO) | payer OTHER ==
[2018-04-23 01:45] VITALS: BMI 28.3
[2018-04-23 02:32] LABS: BASO % 0.5 % (0.0-2.0); EOS # 0.1 K/uL (0.0-0.7); HEMOGLOBIN 14.4 g/dL (12.0-16.0); LYMPH # 2.3 K/uL (1.0-4.3); LYMPH % 25.3 % (20.0-40.0); MEAN CELL VOLUME 91.3 fl (81.0-99.0); MEAN CORPUSCULAR HEMOGLOBIN 30.8 pg (27.0-31.0); MEAN CORPUSCULAR HGB CONC 33.8 g/dL (33.0-37.0); MEAN PLATELET VOLUME 10.1 fl (7.2-11.7); MONO # 0.5 K/uL (0.0-0.8); MONO % 5.4 % (0.0-10.0); NEUT % 67.8 % (50.0-75.0); RBC 4.66 Mil/uL (3.80-5.20); RED CELL DISTRIBUTION WIDTH 13.1 % (11.5-14.5); WHITE BLOOD COUNT 8.9 K/uL (4.8-10.8)
--- NOTE | 2018-04-23 02:36 | ED PDOC ---
HPI: Chest Pain Time Seen by Provider: 04/23/18 02:03 Chief Complaint (Nursing): Chest Pain Chief Complaint (Provider): Chest Pain History Per: Patient History/Exam Limitations: no limitations Current Symptoms Are (Timing): Still Present Additional Complaint(s): Marina Warner is a 57 year old female with a past medical history of diabetes and HTN, who presents to the emergency department complaining of sudden onset of dizziness, x2 episodes of vomiting, and chest pain that began in the middle of the night. Patient states she began to have facial numbness on arrival to the ED. She states that she was feeling well prior to bed and further denies any sick contact, falls, or fever. Patient is complaint with medications. PMD: no provider Past Medical History Reviewed: Historical Data, Nursing Documentation, Vital Signs Vital Signs: Last Vital Signs Temp 98.2 F 04/23/18 01:58 Pulse 77 04/23/18 01:58 Resp 16 04/23/18 01:58 BP 162/74 H 04/23/18 01:58 Pulse Ox 100 04/23/18 01:58 - Medical History PMH: Diabetes, HTN Denies: Chronic Kidney Disease - Surgical History Surgical History: No Surg Hx - Family History Family History: States: Unknown Family Hx - Home Medications Home Medications: Ambulatory Orders Medication Instructions Recorded RX: Atorvastatin [Lipitor] 10 mg PO DAILY #30 tab 06/19/16 RX: Lisinopril [Zestril] 5 mg PO DAILY #30 tab 06/19/16 RX: metFORMIN [glucOPHAGE] 1,000 mg PO BID #60 tab 06/19/16 RX: Aspirin [Ecotrin] 81 mg PO DAILY #30 tabec 04/23/18 RX: Insulin Human NPH [Humulin N] 36 units SC HS 04/23/18 RX: SITagliptin [Januvia] 100 mg PO DAILY 04/23/18 - Allergies Allergies/Adverse Reactions: Allergies Allergy/AdvReac Type Severity Reaction Status Date / Time No Known Allergies Allergy Verified 11/23/17 13:24 Review of Systems ROS Statement: Except As Marked, All Systems Reviewed And Found Negative Constitutional: Negative for: Fever Cardiovascular: Positive for: Chest Pain Gastrointestinal: Positive for: Vomiting Neurological: Positive for: Dizziness Physical Exam - Reviewed Nursing Documentation Reviewed: Yes Vital Signs Reviewed: Yes - Physical Exam Appears: Positive for: Non-toxic, No Acute Distress (appears in pain) Head Exam: Positive for: ATRAUMATIC, NORMOCEPHALIC Skin: Positive for: Diaphoresis (Flush) Eye Exam: Positive for: Normal appearance, EOMI, PERRL ENT: Positive for: Normal ENT Inspection Neck: Positive for: Normal, Painless ROM, Supple Cardiovascular/Chest: Positive for: Regular Rate, Rhythm. Negative for: Murmur Respiratory: Positive for: Normal Breath Sounds. Negative for: Respiratory Distress Gastrointestinal/Abdominal: Positive for: Normal Exam, Soft. Negative for: Tenderness Back: Positive for: Normal Inspection. Negative for: L CVA Tenderness, R CVA Tenderness, Vertebral Tenderness Extremity: Positive for: Normal ROM. Negative for: Pedal Edema, Deformity Neurologic/Psych: Positive for: Alert, Oriented. Negative for: Motor/Sensory Deficits - Laboratory Results Result Diagrams: 04/23/18 02:15 04/23/18 02:15 - ECG ECG Rhythm: Positive for: Sinus Rhythm Rate: 77 O2 Sat by Pulse Oximetry: 100 (RA) Pulse Ox Interpretation: Normal Medical Decision Making Medical Decision Making: Time: 0202 A/P: Work up for ACS. No indication for CT at this time since no neurological deficits. Patient on monitor and will reassess patient. --EKG --CMP --B-Type Natriuretic Peptide --Troponin I --CBC with differential --PTT --PT --Chest xray 2 views [address] Velasquez pending second troponin. Rest of workup and labs were unremarkable. Scribe Attestation: Documented by Lexx Garcia acting as a scribe for Mily Youngblood MD. Provider Scribe Attestation: All medical record entries made by the Scribe were at my direction and personally dictated by me. I have reviewed the chart and agree that the record accurately reflects my personal performance of the history, physical exam, me dical decision making, and the department course for this patient. I have also personally directed, reviewed, and agree with the discharge instructions and disposition. Disposition - Clinical Impression Clinical Impression: Atypical chest pain - Patient ED Disposition Is Patient to be Admitted: Transfer of Care - Disposition Disposition Time: 07:00 Condition: IMPROVED
[2018-04-23 02:38] LABS: PROTHROMBIN TIME 11.3 Seconds (9.8-13.1)
[2018-04-23 02:40] LABS: PARTIAL THROMBOPLASTIN TIME 29.1 Seconds (25.6-37.1)
[2018-04-23 02:43] LABS: ALB/GLOB RATIO 1.3 (1.0-2.1); ALBUMIN 3.9 g/dL (3.5-5.0); ALT/SGPT 23 U/L (9-52); AST/SGOT 15 U/L (14-36); BLOOD UREA NITROGEN 12 mg/dl (7-17); CALCIUM 8.8 mg/dL (8.4-10.2); GFR NON-AFRICAN AMERICAN > 60
[2018-04-23 04:08] LABS: B-TYPE NATRIURETIC PEPTIDE 96.4 pg/ml (0-900)
--- NOTE | 2018-04-23 07:15 | ED PDOC ---
- Laboratory Results Result Diagrams: 04/23/18 02:15 04/23/18 02:15 Lab Results: PT 11.3 Seconds (9.8-13.1) 04/23/18 02:15 INR 1.0 04/23/18 02:15 APTT 29.1 Seconds (25.6-37.1) 04/23/18 02:15 Troponin I < 0.0120 ng/mL (0.00-0.120) 04/23/18 02:15 NT-Pro-B Natriuret Pep 96.4 pg/ml (0-900) 04/23/18 02:15 Total Bilirubin 0.5 mg/dl (0.2-1.3) 04/23/18 02:15 AST 15 U/L (14-36) 04/23/18 02:15 ALT 23 U/L (9-52) 04/23/18 02:15 Alkaline Phosphatase 123 U/L (38-126) 04/23/18 02:15 Total Protein 6.9 G/DL (6.3-8.2) 04/23/18 02:15 Albumin 3.9 g/dL (3.5-5.0) 04/23/18 02:15 Globulin 3.1 gm/dL (2.2-3.9) 04/23/18 02:15 Albumin/Globulin Ratio 1.3 (1.0-2.1) 04/23/18 02:15 - ECG O2 Sat by Pulse Oximetry: 100 (RA) Medical Decision Making Medical Decision Making: Time: 726 Plan: Spink w/o Contrast [CT] Reevaluation [address] Winter and patient will be placed in observation telemetry for chest pain. 851 PROCEDURE: CT HEAD WITHOUT CONTRAST. HISTORY: Vertigo COMPARISON: CT head dated 06/17/2016. TECHNIQUE: Axial computed tomography images were obtained through the head/brain without intravenous contrast. Radiation dose: Total exam DLP = 768.52 mGy-cm. This CT exam was performed using one or more of the following dose reduction techniques: Automated exposure control, adjustment of the mA and/or kV according to patient size, and/or use of iterative reconstruction technique. FINDINGS: HEMORRHAGE: No intracranial hemorrhage. BRAIN: No mass effect or edema. No atrophy or chronic microvascular ischemic changes. VENTRICLES: Unremarkable. No hydrocephalus. CALVARIUM: Unremarkable. PARANASAL SINUSES: Unremarkable as visualized. No significant inflammatory changes. MASTOID AIR CELLS: Unremarkable as visualized. No inflammatory changes. OTHER FINDINGS: Nonspecific new left frontal subcutaneous soft tissue nodule. IMPRESSION: No acute intracranial pathology. New nonspecific left frontal subcutaneous soft tissue nodule. Scribe Attestation: Documented by Tyler Hager, acting as a scribe for Marian Velasquez MD. Provider Scribe Attestation: All medical record entries made by the Scribe were at my direction and personally dictated by me. I have reviewed the chart and agree that the record accurately reflects my personal performance of the history, physical exam, medical decision making, and the department course for this patient. I have also personally directed, reviewed, and agree with the discharge instructions and disposition. Disposition - Clinical Impression Clinical Impression: Chest pain - POA Present On Arrival: Poor Glycemic Control - Disposition Disposition: Hospitalized as Observation Patient Disposition Time: 07:51 Condition: STABLE Addendum Addendum: 04/23/18 07:[address] Pt signed out [address] Youngblood pending second troponin.
[2018-04-23] MEDS ORDERED: Insulin Regular 100 units/ml IV STA (07:27)
[2018-04-23] MEDS ORDERED: Insulin Regular 100 units/ml ONE (07:37)
--- NOTE | 2018-04-23 08:56 | CT ---
Date of service: 04/23/2018 PROCEDURE: CT HEAD WITHOUT CONTRAST. HISTORY: Vertigo COMPARISON: CT head dated 06/17/2016. TECHNIQUE: Axial computed tomography images were obtained through the head/brain without intravenous contrast. Radiation dose: Total exam DLP = 768.52 mGy-cm. This CT exam was performed using one or more of the following dose reduction techniques: Automated exposure control, adjustment of the mA and/or kV according to patient size, and/or use of iterative reconstruction technique. FINDINGS: HEMORRHAGE: No intracranial hemorrhage. BRAIN: No mass effect or edema. No atrophy or chronic microvascular ischemic changes. VENTRICLES: Unremarkable. No hydrocephalus. CALVARIUM: Unremarkable. PARANASAL SINUSES: Unremarkable as visualized. No significant inflammatory changes. MASTOID AIR CELLS: Unremarkable as visualized. No inflammatory changes. OTHER FINDINGS: Nonspecific new left frontal subcutaneous soft tissue nodule. IMPRESSION: No acute intracranial pathology. New nonspecific left frontal subcutaneous soft tissue nodule.
--- NOTE | 2018-04-23 09:07 | CP.PCM.HP ---
<Sultan Flavio - Last Filed: 04/23/18 13:13> History of Present Illness - History of Present Illness History of Present Illness: 57 year old female accompanies by her daughter with PMHx of DMII, HTN, and HLD presents to [facility] ER at midnight with complaints of sudden onset of left sided chest pain, dizziness, 3 episodes of vomiting, right sided facial and perioral numbness that started at 12 am midnight. Denies any shortness of breath, focal weakness, gait disturbance, cough, fever, chills or abdominal pain. Patient is admitted for evaluation of chest pain and CVA. 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 , Housewife, NO alcohol, NO smoking, NO drugs Family Hx: Mother: thyroid CA, sister: breast CA ALL: NKDA, No known food allergies Medications: reviewed ED course: BP 162/74, hr 77, rr 16, temp 98.2, pulse ox 100 ECG: NSR @77 bpm, NO acute ST/T wave changes Troponin x [address]: no acute intracranial pathology Aspirin 325 mg po Present on Admission - Present on Admission Any Indicators Present on Admission: No Review of Systems - Review of Systems Review of Systems: All 12 systems reviewed and negative except as mentioned in HPI Past Patient History - Infectious Disease Hx of Infectious Diseases: None - Past Medical History & Family History Past Medical History?: Yes - Past Social History Smoking Status: Never Smoked - CARDIAC Hx Hypertension: Yes - PULMONARY Hx Respiratory Disorders: No - NEUROLOGICAL Hx Neurological Disorder: No - HEENT Hx HEENT Problems: No - RENAL Hx Chronic Kidney Disease: No - ENDOCRINE/METABOLIC Hx Endocrine Disorders: Yes Hx Diabetes Mellitus Type 2: Yes - HEMATOLOGICAL/ONCOLOGICAL Hx Blood Disorders: No - INTEGUMENTARY Hx Dermatological Problems: No - MUSCULOSKELETAL/RHEUMATOLOGICAL Hx Musculoskeletal Disorders: No Hx Falls: No - GASTROINTESTINAL Hx Gastrointestinal Disorders: No - GENITOURINARY/GYNECOLOGICAL Hx Genitourinary Disorders: No - PSYCHIATRIC Hx Psychophysiologic Disorder: No Hx Substance Use: No - SURGICAL HISTORY Hx Surgeries: Yes Hx Tubal Ligation: Yes - ANESTHESIA Hx Anesthesia: No Hx Anesthesia Reactions: No Meds Home Medications: Home Medication List Medication Instructions Recorded Confirmed Type Aspirin [Ecotrin] 81 mg PO DAILY #30 tabec 04/23/18 Rx Allergies/Adverse Reactions: Allergies Allergy/AdvReac Type Severity Reaction Status Date / Time No Known Allergies Allergy Verified 11/23/17 13:24 Physical Exam - Constitutional Appears: No Acute Distress - Head Exam Head Exam: NORMAL INSPECTION - Eye Exam Eye Exam: EOMI, Normal appearance, PERRL - ENT Exam ENT Exam: Mucous Membranes Moist, Normal Oropharynx - Respiratory Exam Respiratory Exam: Clear to Auscultation Bilateral, NORMAL BREATHING PATTERN. absent: Rhonchi, Wheezes, Respiratory Distress - Cardiovascular Exam Cardiovascular Exam: REGULAR RHYTHM, RRR, +S1, +S2. absent: JVD, Systolic Murmur - GI/Abdominal Exam GI & Abdominal Exam: Normal Bowel Sounds, Soft. absent: Tenderness - Extremities Exam Extremities exam: Positive for: normal inspection, pedal pulses present. Negative for: calf tenderness - Neurological Exam Neurological exam: Alert, CN II-XII Intact, Normal Gait, Oriented x3, Reflexes Normal Additional comments: NIHSS 1 for right facial numbness otherwise normal neuro exam - Expanded Neurological Exam Expanded Patient oriented to: person, place, time Results - Vital Signs Recent Vital Signs: Last Vital Signs Temp 98.2 F 04/23/18 08:55 Pulse 73 04/23/18 08:55 Resp 18 04/23/18 08:55 BP 150/70 04/23/18 08:55 Pulse Ox 100 04/23/18 09:06 - Labs Result Diagrams: 04/23/18 02:15 04/23/18 02:15 Labs: Laboratory Results - last 24 hr 04/23/18 04/23/18 04/23/18 02:15 02:15 02:15 WBC 8.9 D RBC 4.66 Hgb 14.4 Hct 42.6 MCV 91.3 MCH 30.8 MCHC 33.8 RDW 13.1 Plt Count 137 MPV 10.1 Neut % (Auto) 67.8 Lymph % (Auto) 25.3 [place] % (Auto) 5.4 Eos % (Auto) 1.0 Baso % (Auto) 0.5 Neut # (Auto) 6.0 Lymph # (Auto) 2.3 [place] # (Auto) 0.5 Eos # (Auto) 0.1 Baso # (Auto) 0.0 PT 11.3 INR 1.0 APTT 29.1 Sodium 134 Potassium 3.8 Chloride 99 Carbon Dioxide 27 Anion Gap 12 BUN 12 Creatinine 0.4 L Est GFR ( Amer) > 60 Est GFR (Non-Af Amer) > 60 POC Glucose (mg/dL) Random Glucose 313 H Calcium 8.8 Total Bilirubin 0.5 AST 15 ALT 23 Alkaline Phosphatase 123 Troponin I < 0.0120 NT-Pro-B Natriuret Pep 96.4 Total Protein 6.9 Albumin 3.9 Globulin 3.1 Albumin/Globulin Ratio 1.3 04/23/18 04/23/18 04/23/18 02:24 06:15 07:40 WBC RBC Hgb Hct MCV MCH MCHC RDW Plt Count MPV Neut % (Auto) Lymph % (Auto) [place] % (Auto) Eos % (Auto) Baso % (Auto) Neut # (Auto) Lymph # (Auto) [place] # (Auto) Eos # (Auto) Baso # (Auto) PT INR APTT Sodium Potassium Chloride Carbon Dioxide Anion Gap BUN Creatinine Est GFR ( Amer) Est GFR (Non-Af Amer) POC Glucose (mg/dL) 267 H 155 H Random Glucose Calcium Total Bilirubin AST ALT Alkaline Phosphatase Troponin I < 0.0120 NT-Pro-B Natriuret Pep Total Protein Albumin Globulin Albumin/Globulin Ratio Assessment & Plan - Assessment and Plan (Free Text) Assessment: 57 year old female accompanies by her daughter with PMHx of DMII, HTN, and HLD presents to [facility] ER at midnight with complaints of sudden onset of left sided chest pain, dizziness, 3 episodes of vomiting, right sided facial and perioral numbness that started at 12 am midnight. Denies any shortness of breath, focal weakness, gait disturbance, cough, fever, chills or abdominal pain. Patient is admitted for evaluation of chest pain and CVA. Right sided facial numbness, evaluate for CVA -admit to telemetry -NIHSS score: 1 -Head CT: no acute intracranial pathology -Neuro consult, Dr. Harper -Brain MRI -B/L Caroid duplex US -echo -Speech and swallow eval -start aspirin 81 mg po daily -Atorvastatin 40 mg po daily -Neuro check -f/u labs Chest pain, r/o ACS -stable vitals -troponin x 2 neg -ECG: NSR @77 bpm, NO acute ST/T wave changes -f/u 3rd troponin -f/u echo DMII -hold metformin -resume NPH -SSI and hypoglycemia protocol -f/u A1C Hyperlipidemia: -start atorvastatin 40 mg -f/u lipid panel Diet -passed swallow test -heart healty diet DVT prophylaxis -Lovenox 40 mg sc Code status -Full code Patient seen, examined and plan discussed with Dr. Winter <Breonna Winter Genie - Last Filed: 04/23/18 17:11> Results - Vital Signs Recent Vital Signs: Last Vital Signs Temp 98.7 F 04/23/18 15:55 Pulse 78 04/23/18 15:55 Resp 20 04/23/18 15:55 BP 125/76 04/23/18 15:55 Pulse Ox 98 04/23/18 15:55 - Labs Result Diagrams: 04/23/18 02:15 04/23/18 02:15 Labs: Laboratory Results - last 24 hr 04/23/18 04/23/18 04/23/18 02:15 02:15 02:15 WBC 8.9 D RBC 4.66 Hgb 14.4 Hct 42.6 MCV 91.3 MCH 30.8 MCHC 33.8 RDW 13.1 Plt Count 137 MPV 10.1 Neut % (Auto) 67.8 Lymph % (Auto) 25.3 [place] % (Auto) 5.4 Eos % (Auto) 1.0 Baso % (Auto) 0.5 Neut # (Auto) 6.0 Lymph # (Auto) 2.3 [place] # (Auto) 0.5 Eos # (Auto) 0.1 Baso # (Auto) 0.0 PT 11.3 INR 1.0 APTT 29.1 Sodium 134 Potassium 3.8 Chloride 99 Carbon Dioxide 27 Anion Gap 12 BUN 12 Creatinine 0.4 L Est GFR ( Amer) > 60 Est GFR (Non-Af Amer) > 60 POC Glucose (mg/dL) Random Glucose 313 H Calcium 8.8 Total Bilirubin 0.5 AST 15 ALT 23 Alkaline Phosphatase 123 Troponin I < 0.0120 NT-Pro-B Natriuret Pep 96.4 Total Protein 6.9 Albumin 3.9 Globulin 3.1 Albumin/Globulin Ratio 1.3 04/23/18 04/23/18 04/23/18 02:24 06:15 07:40 WBC RBC Hgb Hct MCV MCH MCHC RDW Plt Count MPV Neut % (Auto) Lymph % (Auto) [place] % (Auto) Eos % (Auto) Baso % (Auto) Neut # (Auto) Lymph # (Auto) [place] # (Auto) Eos # (Auto) Baso # (Auto) PT INR APTT Sodium Potassium Chloride Carbon Dioxide Anion Gap BUN Creatinine Est GFR ( Amer) Est GFR (Non-Af Amer) POC Glucose (mg/dL) 267 H 155 H Random Glucose Calcium Total Bilirubin AST ALT Alkaline Phosphatase Troponin I < 0.0120 NT-Pro-B Natriuret Pep Total Protein Albumin Globulin Albumin/Globulin Ratio 04/23/18 04/23/18 14:17 16:03 WBC RBC Hgb Hct MCV MCH MCHC RDW Plt Count MPV Neut % (Auto) Lymph % (Auto) [place] % (Auto) Eos % (Auto) Baso % (Auto) Neut # (Auto) Lymph # (Auto) [place] # (Auto) Eos # (Auto) Baso # (Auto) PT INR APTT Sodium Potassium Chloride Carbon Dioxide Anion Gap BUN Creatinine Est GFR ( Amer) Est GFR (Non-Af Amer) POC Glucose (mg/dL) 223 H Random Glucose Calcium Total Bilirubin AST ALT Alkaline Phosphatase Troponin I < 0.0120 NT-Pro-B Natriuret Pep Total Protein Albumin Globulin Albumin/Globulin Ratio Attending/Attestation - Attestation I have personally seen and examined this patient.: Yes I have fully participated in the care of the patient.: Yes I have reviewed all pertinent clinical information: Yes Notes (Text): Right Facial Numbness , CVA ruled out, etiology to be determined may be anxiety related however further work up as outpt needed RPR , Lyme ordered , ff up result as outpt with PMD - MRI : negative CVA - Carotid Sono : no sig stenosis - Cleared by Neuro Chest Pain ACS ruled out Pain may be GERD as more on the LUQ associated with some vomiting DM type II with Hyperglycemia
[2018-04-23] MEDS ORDERED: Dextrose 50% SYRINGE Inj (50 ml) IV PRN (09:21)
[2018-04-23] MEDS ORDERED: Glucagon Recombinant 1 mg Inj IM PRN (09:21)
[2018-04-23] MEDS ORDERED: Enoxaparin 40 mg Syringe SC SCH (10:04)
--- NOTE | 2018-04-23 10:20 | RAD ---
Date of service: 04/23/2018 HISTORY: cough COMPARISON: Chest radiograph dated 06/17/2016. TECHNIQUE: Chest PA and lateral FINDINGS: LUNGS: No active pulmonary disease. PLEURA: No significant pleural effusion identified. No pneumothorax apparent. CARDIOVASCULAR: Aortic atherosclerotic calcifications. Cardiomediastinal silhouette within normal limits. OSSEOUS STRUCTURES: Unchanged. VISUALIZED UPPER ABDOMEN: Normal. OTHER FINDINGS: None. IMPRESSION: No active disease.
--- NOTE | 2018-04-23 11:13 | MRI ---
Date of service: 04/23/2018 PROCEDURE: MRI BRAIN WITHOUT CONTRAST HISTORY: right side face numbness, eval for CVA COMPARISON: Unenhanced brain MRI 06/17/2016. TECHNIQUE: Multiplanar, multisequence MR images of the brain were obtained without intravenous contrast enhancement. FINDINGS: HEMORRHAGE: None DWI: No evidence of an acute or early subacute infarction. BRAIN PARENCHYMA: Intrinsic signal throughout the calzada and white matter structures above below the tentorium appears within normal limits including the brainstem. There is no mass effect, parenchymal edema or loss of the corticomedullary differentiation. Midline brain anatomy appears within normal limits including the corpus callosum, brainstem and craniocervical junction. There is no suspicious extra-axial fluid collection identified. VENTRICLES: Unremarkable. No hydrocephalus. CRANIUM: Unremarkable. ORBITS: Grossly unremarkable. PARANASAL SINUSES/MASTOIDS: Clear VASCULAR SYSTEM: Skull base flow voids intact. OTHER FINDINGS: Small left frontal scalp lesion, potential 9 mm sebaceous cyst. IMPRESSION: Unremarkable non contrast enhanced MRI of the brain. Interval possible sebaceous cyst left frontal scalp.
[2018-04-23] MEDS ORDERED: Insulin Regular 100 units/ml SC SCH (11:30)
--- NOTE | 2018-04-23 12:23 | US ---
Date of service: 04/23/2018 PROCEDURE: Duplex ultrasound of the carotid and vertebral arteries. HISTORY: eval for CVA COMPARISON: None available. TECHNIQUE: Grayscale and duplex Doppler evaluation of the cervical carotid and vertebral arteries were performed. The common carotid, carotid bifurcations and cervical ICA and proximal ECA were evaluated. The vertebral arteries were evaluated for gross patency and direction. FINDINGS: RIGHT CAROTID ARTERIES: Common Carotid Artery: Normal. Maximal flow velocity of 79.4 cm/s. Carotid Bifurcation: Normal. Internal Carotid Artery:Normal. Maximal flow velocity of 80.6 cm/s. External Carotid Artery (proximal branches): Normal. Maximal flow velocity of 112.9 cm/s. ICA/CCA Ratio: 1.0 LEFT CAROTID ARTERIES: Common Carotid Artery: Normal. Maximal flow velocity of 70.2 cm/s. Carotid Bifurcation: Normal. Internal Carotid Artery:Normal. Maximal flow velocity of 72.3 cm/s. External Carotid Artery (proximal branches): Normal. Maximal flow velocity of 95.6 cm/s. ICA/CCA Ratio: 1.4 VERTEBRAL ARTERIES: Right Vertebral Artery: Patent. Antegrade flow. Left Vertebral Artery: Patent. Antegrade flow. OTHER FINDINGS: No atherosclerotic calcification present IMPRESSION: Per NASCET criteria, no stenosis of the internal carotid arteries, bilaterally.
--- NOTE | 2018-04-23 12:46 | CP.PCM.CON ---
History of Present Illness - History of Present Illness History of Present Illness: Neurology consult dictated and chart reviewed. Neurology exam normal. NIHHS: 0 CT scan head: normal MRI/Brain: normal. Carotid Dopplers: normal. Patient cleared from neurology point of view. THank you DR. Leroy Grimm neurology Past Patient History - Infectious Disease Hx of Infectious Diseases: None - Past Medical History & Family History Past Medical History?: Yes - Past Social History Smoking Status: Never Smoked - CARDIAC Hx Hypertension: Yes - PULMONARY Hx Respiratory Disorders: No - NEUROLOGICAL Hx Neurological Disorder: No - HEENT Hx HEENT Problems: No - RENAL Hx Chronic Kidney Disease: No - ENDOCRINE/METABOLIC Hx Endocrine Disorders: Yes Hx Diabetes Mellitus Type 2: Yes - HEMATOLOGICAL/ONCOLOGICAL Hx Blood Disorders: No - INTEGUMENTARY Hx Dermatological Problems: No - MUSCULOSKELETAL/RHEUMATOLOGICAL Hx Musculoskeletal Disorders: No Hx Falls: No - GASTROINTESTINAL Hx Gastrointestinal Disorders: No - GENITOURINARY/GYNECOLOGICAL Hx Genitourinary Disorders: No - PSYCHIATRIC Hx Psychophysiologic Disorder: No Hx Substance Use: No - SURGICAL HISTORY Hx Surgeries: Yes Hx Tubal Ligation: Yes - ANESTHESIA Hx Anesthesia: No Hx Anesthesia Reactions: No Meds Allergies/Adverse Reactions: Allergies Allergy/AdvReac Type Severity Reaction Status Date / Time No Known Allergies Allergy Verified 11/23/17 13:24 - Medications Medications: Current Medications Aspirin (Ecotrin) 81 mg PO DAILY [facility] Atorvastatin Calcium (Lipitor) 40 mg PO DAILY [facility] Dextrose (Dextrose 50% Inj) 0 ml IV STAT PRN; Protocol PRN Reason: Hypoglycemia Protocol Dextrose (Glutose 15) 0 gm PO ONCE PRN; Protocol PRN Reason: Hypoglycemia Protocol Enoxaparin Sodium (Lovenox) 40 mg SC DAILY [facility]; Protocol Glucagon (Glucagen Diagnostic Kit) 0 mg IM STAT PRN; Protocol PRN Reason: Hypoglycemia Protocol Insulin Human NPH (Humulin N) 36 units SC HS BRIANNA Insulin Human Regular (Humulin R) 0 units SC ACHS [facility]; Protocol Ondansetron HCl (Zofran Inj) 4 mg IVP Q6 PRN PRN Reason: Nausea/Vomiting Sitagliptin Phosphate (Januvia) 100 mg PO DAILY [facility] Results - Vital Signs Recent Vital Signs: Last Vital Signs Temp 98.2 F 04/23/18 08:55 Pulse 73 04/23/18 08:55 Resp 18 04/23/18 08:55 BP 150/70 04/23/18 08:55 Pulse Ox 100 02/09/19 09:06 - Labs Result Diagrams: 04/23/18 02:15 04/23/18 02:15 Labs: Laboratory Results - last 24 hr 04/23/18 04/23/18 04/23/18 02:15 02:15 02:15 WBC 8.9 D RBC 4.66 Hgb 14.4 Hct 42.6 MCV 91.3 MCH 30.8 MCHC 33.8 RDW 13.1 Plt Count 137 MPV 10.1 Neut % (Auto) 67.8 Lymph % (Auto) 25.3 [place] % (Auto) 5.4 Eos % (Auto) 1.0 Baso % (Auto) 0.5 Neut # (Auto) 6.0 Lymph # (Auto) 2.3 [place] # (Auto) 0.5 Eos # (Auto) 0.1 Baso # (Auto) 0.0 PT 11.3 INR 1.0 APTT 29.1 Sodium 134 Potassium 3.8 Chloride 99 Carbon Dioxide 27 Anion Gap 12 BUN 12 Creatinine 0.4 L Est GFR ( Amer) > 60 Est GFR (Non-Af Amer) > 60 POC Glucose (mg/dL) Random Glucose 313 H Calcium 8.8 Total Bilirubin 0.5 AST 15 ALT 23 Alkaline Phosphatase 123 Troponin I < 0.0120 NT-Pro-B Natriuret Pep 96.4 Total Protein 6.9 Albumin 3.9 Globulin 3.1 Albumin/Globulin Ratio 1.3 04/23/18 04/23/18 04/23/18 02:24 06:15 07:40 WBC RBC Hgb Hct MCV MCH MCHC RDW Plt Count MPV Neut % (Auto) Lymph % (Auto) [place] % (Auto) Eos % (Auto) Baso % (Auto) Neut # (Auto) Lymph # (Auto) [place] # (Auto) Eos # (Auto) Baso # (Auto) PT INR APTT Sodium Potassium Chloride Carbon Dioxide Anion Gap BUN Creatinine Est GFR ( Amer) Est GFR (Non-Af Amer) POC Glucose (mg/dL) 267 H 155 H Random Glucose Calcium Total Bilirubin AST ALT Alkaline Phosphatase Troponin I < 0.0120 NT-Pro-B Natriuret Pep Total Protein Albumin Globulin Albumin/Globulin Ratio
[2018-04-23] MEDS ORDERED: Influenza Vaccine (5 YR UP)/PF 60 MCG/0.5 ML SYR IM ONE (14:49)
[2018-04-23] MEDS ORDERED: Influenza Vaccine 60 mcg/0.5 mL SYR (4YR UP) IM ONE (15:00)
[2018-04-23 15:56] VITALS: BP 125/76; RESP 20; TEMP 98.7
[2018-04-23] MEDS ORDERED: Insulin NPH Human 100 Units/ml Inj SC SCH (22:00)
--- NOTE | 2018-04-23 23:47 | CARD ---
APPROVED REPORT Date of service: 04/23/2018 EXAM: Two-dimensional and M-mode echocardiogram with Doppler and color Doppler. Other Information Quality : AverageRhythm : NSR INDICATION Right Sided Face Numbness 2D DIMENSIONS IVSd1.17 (0.7-1.1cm)LVDd3.90 (3.9-5.9cm) PWd0.99 (0.7-1.1cm)LA Sdrwab76 (18-58mL) LVDs2.49 (2.5-4.0cm)FS (%) 36.2 % M-Mode DIMENSIONS Left Atrium (MM)4.23 (2.5-4.0cm)Aortic Root2.52 (2.2-3.7cm) Aortic Valve AoV Peak Lnljxamf362.0cm/sAoV VTI27.4cmAO Peak GR.7mmHg LVOT Peak Wakdyjhg436.7cm/sLVOT VTI25.74cmAO Mean GR.4mmHg Mitral Valve MV E Eapyitwa67.8cm/sMV E Peak Gr.44mmHgMV DECEL [id number] MV A Ljzqugaa00.8cm/sMV DFE22hoD/A ratio1.1 MVA (PHT)3.18cm2 TDI Lateral E' Peak V11.24cm/sMedial E' Peak V8.96cm/sE/Lateral E'7.5 E/Medial E'9.5 Pulmonary Valve RVOT VTI16.1cm Tricuspid Valve TR Peak Lyythxbd829as/sTR Peak Gr.13mmHg LEFT VENTRICLE The left ventricle is normal size. There is normal left ventricular wall thickness. The left ventricular systolic function is normal. The estimated ejection fraction is 60-65% No regional wall motion abnormalities noted.. The left ventricular diastolic function is normal. No left ventricle thrombus noted on this study. There is no ventricular septal defect visualized. There is no left ventricular aneurysm. There is no mass noted in the left ventricle. RIGHT VENTRICLE The right ventricle is normal size. There is normal right ventricular wall thickness. The right ventricular systolic function is normal. ATRIA The left atrium is mildly dilated. The right atrium size is normal. The interatrial septum is intact with no evidence for an atrial septal defect. AORTIC VALVE The aortic valve is normal in structure. No aortic regurgitation is present. There is no aortic valvular stenosis. There is no aortic valvular vegetation. MITRAL VALVE The mitral valve is normal in structure. There is no evidence of mitral valve prolapse. There is no mitral valve stenosis. There is trace mitral valve regurgitation noted. TRICUSPID VALVE The tricuspid valve is normal in structure. There is trace tricuspid valve regurgitation noted. RVSP is calculated at 20 mm Hg. There is no tricuspid valve prolapse or vegetation. There is no tricuspid valve stenosis. PULMONIC VALVE The pulmonary valve is normal in structure. There is no pulmonic valvular regurgitation. There is no pulmonic valvular stenosis. GREAT VESSELS The aortic root is normal in size. The ascending aorta is normal in size. The pulmonary artery is normal. The IVC is normal in size and collapses >50% with inspiration. PERICARDIAL EFFUSION There is no pericardial effusion. There is no pleural effusion. <Conclusion> The estimated ejection fraction is 60-65% The left ventricular diastolic function is normal. The left atrium is mildly dilated. There is trace mitral valve regurgitation noted. There is trace tricuspid valve regurgitation noted. RVSP is calculated at 20 mm Hg.
--- NOTE | 2018-04-24 00:10 | CARD ---
APPROVED REPORT Date of service: 04/23/2018 EKG Measurement Heart [id number] <Conclusion> Normal sinus rhythm Normal ECG
--- NOTE | 2018-04-24 00:21 | CON ---
DATE: 04/23/2018 NEUROLOGY CONSULTATION Neurology consult called by Dr. Zhu, emergency room physician. HISTORY OF PRESENT ILLNESS: This is a 57-year-old right handed woman who has past medical history of diabetes and high blood pressure, came to the emergency room complaining of sudden onset of dizziness. She also has vomiting and chest pain along with right-sided facial numbness that started on arrival to the emergency room. There is no aphasia, no dysarthria and NIHSS at the time of presentation was 1. She is not a tPA candidate due to low NIH stroke scale. She denies trauma. She denies car accident. She denies any prior stroke or sick contacts, fall, fever, or new medications. REVIEW OF SYSTEMS: As above. PAST MEDICAL HISTORY: Diabetes, high blood pressure. PAST SURGICAL HISTORY: noncontributory. HOME MEDICATIONS: Elavil, aspirin, Lipitor, vitamin D3,Motrin and Bactrim. PHYSICAL EXAMINATION: NEUROLOGIC: NIH stroke scale of 0. On examination this morning, alert and oriented x3. Pupils equal, round, and reactive to light. Cranial nerve II through XII normal and mini-mental status done in [place] is normal. Motor tone and strength is normal. Sensory intact to fine touch, pin, position, and vibration sense. The patient had a normal gait with no ataxia, she is able to walk heel-to-toe. She was able to open her eyes with no Romberg. Reflexes were +1 in upper and lower limbs bilaterally. Toes were downgoing. There was no clonus. There was no facial asymmetry. There was no visual field cut. She is able to name and repeat properly. LABORATORY DATA: As follows: White count 8.9 , hemoglobin 14.4 , hematocrit 42.6, platelets 127. The patient's CAT scan was normal. MRI was normal. Carotid ultrasound was normal. There were no strokes. There were no intracranial hemorrhages. There were no past stroke noted either. IMPRESSION: The patient is currently being admitted and undergoing stroke work up. This is a 57-year-old woman, who had an onset of facial numbness that is stroke versus seizure. Neurologically, she is normal and without any findings at this point. Differential diagnosis include panic attack and cardiac origin. At this point in time, the patient is neurologically clear for discharge. Please re-consult us p.r.n. Thank you for this consult. Jacinda Harper MD [place]
[2018-04-24 01:55] VITALS: PULSE 77; O2SAT 100
[2018-04-24] MEDS ORDERED: Enoxaparin 40 mg Syringe SC SCH (09:00)
== END 2018-04-23 18:20 | disposition home or self-care (01) ==
LOC: H.ER 01:45 → H.ERHOLD 07:51 → INTOOBSV 10:07 → OBSVTOIN 10:07 → H.TEL 12:22
PROVIDERS: ADMIT Internal Medicine; ATTEND Internal Medicine
DX: R07.89 Other chest pain (principal); E11.9 Type 2 diabetes mellitus without complications; E78.5 Hyperlipidemia, unspecified; I10 Essential (primary) hypertension; R29.701 NIHSS score 1; Z79.82 Long term (current) use of aspirin; Z79.899 Other long term (current) drug therapy; Z80.3 Family history of malignant neoplasm of breast; Z80.8 Family history of malignant neoplasm of other organs or systems; R11.10 Vomiting, unspecified; E11.8 Type 2 diabetes mellitus with unspecified complications; R29.810 Facial weakness; Z23 Encounter for immunization
CPT/HCPCS: 36415; 70450; 70551; 71046; 80053; 82948; 83880; 84484; 85025; 85610; 85730; 90471; 90674; 93005; 93306; 93880; 96372; 97161; 99285; G0378; G8978; G8979; G8980; J1650

== ENCOUNTER 2018-07-25 18:50 | Emergency (ER) | payer OTHER ==
[2018-07-25 18:50] VITALS: BMI 28.3
[2018-07-25 19:15] VITALS: BP 114/64; PULSE 88; RESP 16; TEMP 98; O2SAT 98
--- NOTE | 2018-07-25 21:14 | ED PDOC ---
HPI: Chest Pain Time Seen by Provider: 07/25/18 19:52 Chief Complaint (Nursing): Rib Injury Chief Complaint (Provider): chest pain History Per: Patient History/Exam Limitations: no limitations Onset/Duration Of Symptoms: Days (1x week) Current Symptoms Are (Timing): Still Present Severity: Moderate Additional Complaint(s): 58 year old female with no past medical history presents to the ED for an evaluation of right sided chest pain ongoing for 1x week. Patient states that 1x week ago she began experiencing right upper arm pain which radiates to her back and chest. Patient states that the pain is reproducible with movement, and has an itching and burning sensation when she touches the area. Patient states that 1x year ago she had an arm injury and took ibuprofen with transient relief. Patient reports taking 2x advil tabs at home 2x hours prior to arrival with improvement of symptoms. Patient denies having a cough, anterior chest pain, shortness of breath, rashes, fevers, or breast pain. PMD: None provided Past Medical History Reviewed: Historical Data, Nursing Documentation, Vital Signs Vital Signs: Last Vital Signs Temp 98.0 F 07/25/18 19:12 Pulse 88 07/25/18 19:12 Resp 16 07/25/18 19:12 BP 114/64 07/25/18 19:12 Pulse Ox 98 07/25/18 19:12 FAY Report Viewed: Yes Primary Care Provider: ARELY AGUILAR - Medical History PMH: Anxiety, Diabetes, HTN Denies: HIV, Chronic Kidney Disease - Family History Family History: States: No Known Family Hx - Social History Current smoker - smoking cessation education provided: No Alcohol: None Drugs: Denies - Home Medications Home Medications: Ambulatory Orders Medication Instructions Recorded Atorvastatin [Lipitor] 10 mg PO DAILY #30 tab 06/19/16 Lisinopril [Zestril] 5 mg PO DAILY #30 tab 06/19/16 metFORMIN [glucOPHAGE] 1,000 mg PO BID #60 tab 06/19/16 Aspirin [Ecotrin] 81 mg PO DAILY #30 tabec 04/23/18 Insulin Human NPH [Humulin N] 36 units SC HS 04/23/18 SITagliptin [Januvia] 100 mg PO DAILY 04/23/18 Naproxen 500 mg PO Q12H PRN #30 tab 07/25/18 - Allergies Allergies/Adverse Reactions: Allergies Allergy/AdvReac Type Severity Reaction Status Date / Time No Known Allergies Allergy Verified 07/25/18 19:12 Review of Systems ROS Statement: Except As Marked, All Systems Reviewed And Found Negative Musculoskeletal: Positive for: Other (right upper arm pain radiates to upper back and chest ) Physical Exam - Reviewed Nursing Documentation Reviewed: Yes Vital Signs Reviewed: Yes - Physical Exam Appears: Positive for: Well, Non-toxic, No Acute Distress Head Exam: Positive for: ATRAUMATIC, NORMOCEPHALIC Skin: Positive for: Normal Color, Warm, Dry Cardiovascular/Chest: Positive for: Regular Rate, Rhythm. Negative for: Chest Non Tender (reproducible pain when patient complains of pain. skin intact. (-) rashes) Respiratory: Positive for: Normal Breath Sounds Gastrointestinal/Abdominal: Positive for: Normal Exam, Soft. Negative for: Tenderness Extremity: Positive for: Normal ROM. Negative for: Tenderness, Swelling Neurological/Psych: Positive for: Awake, Alert, Oriented (3x) - ECG O2 Sat by Pulse Oximetry: 98 (RA) Pulse Ox Interpretation: Normal - Radiology X-Ray: Viewed By Me X-Ray Interpretation: No Acute Disease Medical Decision Making Medical Decision Makin:52 Initial impression: 58 year old female with arm pain radiating to the back and chest Initial plan: * XRay chest 2 views * reevaluation 22:19 Clinical findings discussed with patient. Further work up needed in ED. Patient to follow-up with PMD. Rx given for naproxen. return to ED precautions given. Patient states understanding and agrees with plan. ScribeAttestation: Documented byMily Quinones, acting as a scribe for Nikki Francis [employer]OURCE MANAGEMENT SPECIALIST. Provider ScribeAttestation: All medical record entries made by the Scribe were at my direction and personally dictated by me. I have reviewed the chart and agree that the record accurately reflects my personal performance of the history, physical exam, medical decision making, and the department course for this patient. I have also personally directed, reviewed, and agree with the discharge instructions and disposition. Disposition - Clinical Impression Clinical Impression: Chest wall pain - Patient ED Disposition Is Patient to be Admitted: No Counseled Patient/Family Regarding: Diagnosis, Need For Followup, Rx Given - Disposition Referrals: Capri Phipps MD [Medical Doctor] - Disposition: Routine/Home Disposition Time: 22:19 Condition: GOOD Prescriptions: Naproxen 500 mg PO Q12H PRN #30 tab PRN Reason: Pain, Moderate (4-7) Instructions: Costochondritis (DC) Print Language: ARMENIAN - POA Present On Arrival: None
--- NOTE | 2018-07-26 08:27 | RAD ---
Date of service: 07/25/2018 HISTORY: pain to left sided of the chest under axilla. COMPARISON: Chest radiographs 04/23/2018. TECHNIQUE: Chest PA and lateral views FINDINGS: LUNGS: No active pulmonary disease. PLEURA: No significant pleural effusion identified. No pneumothorax apparent. CARDIOVASCULAR: No aortic atherosclerotic calcification present. Normal cardiac size. No pulmonary vascular congestion. OSSEOUS STRUCTURES: No significant abnormalities. VISUALIZED UPPER ABDOMEN: Normal. OTHER FINDINGS: None. IMPRESSION: No interval acute cardiopulmonary disease appreciated.
== END 2018-07-25 22:20 | disposition home or self-care (01) ==
LOC: H.ER 18:50
DX: R07.89 Other chest pain (principal)